=== PATIENT | male | born 1945 | race Caucasian/White ===

== ENCOUNTER → 2017-10-03 07:30 | Outpatient (CLI) | payer MEDICARE, OTHER, SELFPAY ==
[2017-10-03 09:13] LABS: AST(SGOT) 27 U/L (15-37); Alanine Aminotransfer ALT/SGPT 33 U/L (16-61); Albumin, Serum 3.6 g/dL (3.2-5.0); Alkaline Phosphatase 74 U/L (45-117); Bilirubin, Direct 0.19 mg/dL (0.00-0.30); Cholesterol 166 mg/dL (200); Globulin 4.1 g/dL (2.2-4.2); High Density Lipoprotein 49 mg/dL; Protein, Total 7.7 g/dL (6.4-8.2); Triglycerides 183 mg/dL; Very Low Density Lipoprotein 37 mg/dL (5-40)
== END ==
PROVIDERS: Internal Medicine Cardiovascular Disease; Family Provider Family Medicine; PCP Family Medicine; Visit Provider Radiology Diagnostic Radiology
DX: E78.5 Hyperlipidemia, unspecified (principal); Z79.899 Other long term (current) drug therapy
CPT/HCPCS: 36415; 80061; 80076

== ENCOUNTER → 2017-11-06 08:04 | Outpatient (CLI) | payer MEDICARE, OTHER, SELFPAY ==
[2017-11-06 09:52] LABS: Absolute Lymphocyte Count 1.23 X10^3/ul (0.83-4.51); Absolute Neutrophil Count 4.7 X10^3/uL (2.0-7.7); Basophil# 0.01 X10^3/uL; Basophil% 0.2 % (0-1); Eosinophil# 0.11 X10^3/uL; Eosinophils% 1.7 % (0-5); Hematocrit 47.6 % (40-54); Lymphocyte # 1.23 X10^3/ul (4.0); Lymphocyte % 19.2 % (19-41); Mean Corp Hgb Conc 33.6 g/gl (32-36); Mean Corpuscular Hgb 30.5 pg (27.0-32.0); Mean Corpuscular Volume 90.7 fL (80-94); Mean Platelet Vol. 11.1 fl (6.2-12.0); Monocyte# 0.38 X10^3/uL; Monocyte% 5.9 % (0-10); Neutrophil # 4.66 X10^3/uL (2.7-7.7); Neutrophil % 72.8 % (47-70); Platelet Count 203 K/mm3 (150-450); RBC Distribution Width CV 13.2 % (11.6-14.6); RBC Distribution Width SD 43.3 fl (35.1-43.9); Red Blood Count 5.25 M/mm3 (4.6-6.2); White Blood Count 6.4 K/mm3 (4.4-11.0)
[2017-11-06 09:53] LABS: POSITIVE COUNT NO; POSITIVE DIFFERENTIAL NO; POSITIVE MORPHOLOGY NO
[2017-11-06 10:04] LABS: ALB/GLOB Ratio 0.9 RATIO (0.9-2.4); AST(SGOT) 25 U/L (15-37); Alanine Aminotransfer ALT/SGPT 33 U/L (16-61); Albumin, Serum 3.9 g/dL (3.2-5.0); Alkaline Phosphatase 84 U/L (45-117); Anion Gap 9 (5-15); BUN 23 mg/dL (7-18); BUN/Creat Ratio 17.2 RATIO (10-20); Calcium,Total 9.4 mg/dL (8.5-10.1); Chloride 106 mmol/L (98-107); Cholesterol 178 mg/dL (200); Creatinine, Serum 1.34 mg/dL (0.70-1.30); EST Glomerular Filtration Rate 56 mL/min (>60); Est Glom Filt Rate - Afr Amer 67 mL/min (>60); Globulin 4.3 g/dL (2.2-4.2); Glucose 106 mg/dL (74-106); High Density Lipoprotein 48 mg/dL; Potassium 3.6 mmol/L (3.5-5.1); Protein, Total 8.2 g/dL (6.4-8.2); Sodium Level 141 mmol/L (136-145); Triglycerides 136 mg/dL; Very Low Density Lipoprotein 27 mg/dL (5-40)
== END ==
PROVIDERS: Family Provider Family Medicine; PCP Family Medicine; Visit Provider Family Medicine
DX: I25.10 Atherosclerotic heart disease of native coronary artery without angina pectoris (principal)
CPT/HCPCS: 36415; 80053; 80061; 85025

== ENCOUNTER → 2018-03-14 07:42 | Outpatient (CLI) | payer MEDICARE, OTHER, SELFPAY ==
[2018-03-14 09:13] LABS: AST(SGOT) 32 U/L (15-37); Alanine Aminotransfer ALT/SGPT 33 U/L (16-61); Albumin, Serum 3.9 g/dL (3.2-5.0); Alkaline Phosphatase 68 U/L (45-117); Bilirubin, Direct 0.16 mg/dL (0.00-0.30); Cholesterol 183 mg/dL (200); Globulin 4.2 g/dL (2.2-4.2); High Density Lipoprotein 46 mg/dL; Protein, Total 8.1 g/dL (6.4-8.2); Triglycerides 218 mg/dL; Very Low Density Lipoprotein 44 mg/dL (5-40)
== END ==
PROVIDERS: Family Provider Family Medicine; PCP Family Medicine; Visit Provider Internal Medicine Cardiovascular Disease
DX: I25.10 Atherosclerotic heart disease of native coronary artery without angina pectoris (principal); E78.5 Hyperlipidemia, unspecified
CPT/HCPCS: 36415; 80061; 80076

== ENCOUNTER → 2018-04-18 08:17 | Outpatient (CLI) | payer MEDICARE, OTHER, SELFPAY ==
[2018-04-18 09:47] LABS: AST(SGOT) 33 U/L (15-37); Alanine Aminotransfer ALT/SGPT 34 U/L (16-61); Albumin, Serum 3.7 g/dL (3.2-5.0); Alkaline Phosphatase 65 U/L (45-117); Bilirubin, Direct 0.17 mg/dL (0.00-0.30); Cholesterol 170 mg/dL (200); Globulin 4.2 g/dL (2.2-4.2); High Density Lipoprotein 47 mg/dL; Protein, Total 7.9 g/dL (6.4-8.2); Triglycerides 189 mg/dL; Very Low Density Lipoprotein 38 mg/dL (5-40)
== END ==
PROVIDERS: Family Provider Family Medicine; PCP Family Medicine; Referring Provider Nurse Practitioner Family; Visit Provider Nurse Practitioner Family
DX: E78.5 Hyperlipidemia, unspecified (principal); I25.10 Atherosclerotic heart disease of native coronary artery without angina pectoris
CPT/HCPCS: 36415; 80061; 80076

== ENCOUNTER → 2018-04-30 08:20 | Outpatient (CLI) | payer MEDICARE, OTHER, SELFPAY ==
[2018-04-30 10:35] LABS: Hemoglobin 14.7 g/dl (13.0-16.5); Mean Corp Hgb Conc 34.2 g/gl (32-36); Mean Corpuscular Hgb 31.1 pg (27.0-32.0); Mean Corpuscular Volume 90.9 fL (80-94); Mean Platelet Vol. 10.5 fl (6.2-12.0); Platelet Count 215 K/mm3 (150-450); RBC Distribution Width CV 13.3 % (11.6-14.6); RBC Distribution Width SD 43.2 fl (35.1-43.9); Red Blood Count 4.73 M/mm3 (4.6-6.2); White Blood Count 5.2 K/mm3 (4.4-11.0)
[2018-04-30 10:38] LABS: Scan Indicated on CBC? Y/N NO
[2018-04-30 10:52] LABS: ALB/GLOB Ratio 0.9 RATIO (0.9-2.4); AST(SGOT) 29 U/L (15-37); Alanine Aminotransfer ALT/SGPT 32 U/L (16-61); Albumin, Serum 3.7 g/dL (3.2-5.0); Alkaline Phosphatase 74 U/L (45-117); Anion Gap 9 (5-15); BUN 25 mg/dL (7-18); BUN/Creat Ratio 18.2 RATIO (10-20); Chloride 104 mmol/L (98-107); Cholesterol 164 mg/dL (200); Creatinine, Serum 1.37 mg/dL (0.70-1.30); EST Glomerular Filtration Rate 54 mL/min (>60); Est Glom Filt Rate - Afr Amer 66 mL/min (>60); Globulin 4.2 g/dL (2.2-4.2); Glucose 88 mg/dL (74-106); High Density Lipoprotein 47 mg/dL; Protein, Total 7.9 g/dL (6.4-8.2); Sodium Level 140 mmol/L (136-145); Thyroid Stim Hormone (TSH) 1.81 uIU/mL (0.358-3.74); Triglycerides 161 mg/dL; Very Low Density Lipoprotein 32 mg/dL (5-40)
== END ==
PROVIDERS: Family Provider Family Medicine; PCP Family Medicine; Visit Provider Family Medicine
DX: I25.10 Atherosclerotic heart disease of native coronary artery without angina pectoris (principal)
CPT/HCPCS: 36415; 80053; 80061; 84443; 85027

== ENCOUNTER → 2018-08-28 08:17 | Outpatient (CLI) | payer MEDICARE, OTHER, SELFPAY ==
[2018-08-07 09:35] VITALS: BMI 26.4
[2018-08-28 12:40] LABS: BUN 24 mg/dL (7-18); BUN/Creat Ratio 17.6 RATIO (10-20); Creatinine, Serum 1.36 mg/dL (0.70-1.30); EST Glomerular Filtration Rate 55 mL/min (>60); Est Glom Filt Rate - Afr Amer 66 mL/min (>60); Glucose 84 mg/dL (74-106)
[2018-08-28 12:41] LABS: Anion Gap 10 (5-15); Calcium,Total 8.7 mg/dL (8.5-10.1); Chloride 103 mmol/L (98-107); Potassium 3.9 mmol/L (3.5-5.1); Sodium Level 139 mmol/L (136-145)
== END ==
PROVIDERS: Family Provider Family Medicine; PCP Family Medicine; Visit Provider Family Medicine
DX: I10 Essential (primary) hypertension (principal)
CPT/HCPCS: 36415; 80048

== ENCOUNTER → 2018-11-03 | Outpatient (CLI) | payer MEDICARE, OTHER, SELFPAY ==
[2018-08-07 09:35] VITALS: BMI 26.4
[2018-11-03 07:54] LABS: AST(SGOT) 40 U/L (15-37); Alanine Aminotransfer ALT/SGPT 35 U/L (16-61); Albumin, Serum 3.9 g/dL (3.2-5.0); Alkaline Phosphatase 76 U/L (45-117); Bilirubin, Direct 0.27 mg/dL (0.00-0.30); Cholesterol 171 mg/dL (200); High Density Lipoprotein 57 mg/dL; Protein, Total 7.9 g/dL (6.4-8.2); Triglycerides 174 mg/dL; Very Low Density Lipoprotein 35 mg/dL (5-40)
== END | disposition home or self-care (01) ==
LOC: LAB 07:16
PROVIDERS: Family Provider Family Medicine; PCP Family Medicine; Referring Provider Nurse Practitioner Family; Visit Provider Nurse Practitioner Family
DX: E78.5 Hyperlipidemia, unspecified (principal)
CPT/HCPCS: 36415; 80061; 80076

== ENCOUNTER → 2019-04-29 | Outpatient (CLI) | payer MEDICARE, OTHER, SELFPAY ==
[2019-04-16 11:07] VITALS: BMI 26.4
--- NOTE | 2019-04-29 10:59 | ECHOD_ITS ---
Reason For Study: CAD/ASHD Procedure This was a 2D Doppler, Color Flow transthoracic echocardiogram. Exam performed in department. Left Ventricle Normal size and thickness. The estimated ejection fraction is 65 %. Stage 1 diastolic dysfunction. No regional wall motion abnormalities noted. Right Ventricle Moderately dilated right ventricle. Normal systolic function. Atria Normal left atrium. Normal right atrium. Normal atrial septum. Mitral Valve The mitral valve is structurally normal. No prolapse or stenosis seen. Trivial mitral valve insufficiency. Tricuspid Valve Normal tricuspid valve. Mild (1+) tricuspid valve insufficiency. Right ventricular systolic pressure estimated to be 39 mmHg. Mild pulmonary hypertension. Aortic Valve Trisinus/trileaflet aortic valve. Mild diffuse aortic valve thickening. Mild (1+) aortic valve insufficiency. Pulmonic Valve Normal pulmonic valve. Great Vessels Normal aortic root. Normal arch. Normal inferior vena cava. Inferior vena cava collapse with sniff. Pericardium/Pleural No pericardial effusion. MMode/2D Measurements & Calculations LVIDd: 4.9 cm IVSd: 1.1 cm Ao root diam: 3.5 cm LVIDs: 3.2 cm LVPWd: 1.1 cm RVDd: 4.4 cm FS: 34.7 % LAV(MOD-bp): 56.0 ml LVAd ap4: 36.5 cm2 SV(MOD-sp4): 83.4 ml LAV(MOD-bp) Indexed: 28.1 ml/m2 EDV(MOD-sp4): 134.1 ml LAV(MOD-sp2): 64.2 ml EDV(sp4-el): 141.3 ml LAV(MOD-sp4): 47.9 ml LVAs ap4: 20.5 cm2 ESV(MOD-sp4): 50.7 ml ESV(sp4-el): 52.6 ml EF(MOD-sp4): 62.2 % EF(sp4-el): 62.8 % SV(sp4-el): 88.7 ml LA A4 area: 17.2 cm2 LA dimension(2D): 4.1 cm RA A4 area: 15.5 cm2 Time Measurements MV dec time: 0.30 sec Doppler Measurements & Calculations MV E max delgado: 55.2 cm/sec Lat Peak E' Delgado: 7.5 cm/sec Med Peak E' Delgado: 6.4 cm/sec MV A max delgado: 64.6 cm/sec E/E' lat: 7.3 E/E' med: 8.7 MV E/A: 0.85 Ao V2 max: 148.5 cm/sec AI max delgado: 422.9 cm/sec LV V1 max: 118.6 cm/sec Ao max P.8 mmHg AI max P.5 mmHg LV V1 max P.6 mmHg AI dec slope: 150.9 cm/sec2 AI P1/2t: 820.6 msec PA V2 max: 78.5 cm/sec TR max delgado: 282.1 cm/sec TR max P.9 mmHg Interpretation Summary The estimated ejection fraction is 65 %. Stage 1 diastolic dysfunction. Moderately dilated right ventricle. Trivial mitral valve insufficiency. Mild (1+) tricuspid valve insufficiency. Right ventricular systolic pressure estimated to be 39 mmHg. Mild pulmonary hypertension. Mild (1+) aortic valve insufficiency. There is no comparison study available. Ordering Physician: Juan David Arias Referring Physician: DESIRAE EVANS Performed By: Yuki Fair RDCS
== END | disposition home or self-care (01) ==
LOC: CVS 10:58
PROVIDERS: Family Provider Family Medicine; PCP Family Medicine; Referring Provider Internal Medicine Cardiovascular Disease; Visit Provider Internal Medicine Cardiovascular Disease
DX: I25.10 Atherosclerotic heart disease of native coronary artery without angina pectoris (principal); E78.5 Hyperlipidemia, unspecified; I10 Essential (primary) hypertension; Z95.5 Presence of coronary angioplasty implant and graft
CPT/HCPCS: 93306

== ENCOUNTER → 2019-05-13 | Outpatient (CLI) | payer MEDICARE, OTHER, SELFPAY ==
[2019-04-16 11:07] VITALS: BMI 26.4
--- NOTE | 2019-05-13 09:19 | STEWCON_ITS ---
Reason For Study: CAD/ASHD Stress Results Protocol: Surya Protocol WITH DEFINITY Maximum Predicted HR: 146 bpm Target HR: 124 bpm % Maximum Predicted HR: 108 % DurationHeart Rate Stage (mm:ss) (bpm) BP Comment baseline 58 132/702 cc definity stage one 3:00 92 120/80 stage two 3:00 108 130/82 stage three 3:00 129 140/882 cc definity stage four 0:30 157 / recovery 78 138/78 Stress Duration: 9:30 mm:ss Maximum Stress HR: 157 bpm Baseline Echocardiogram Findings The estimated ejection fraction is 65 %. Stress Echo Wall motion Data Resting WM Intermediate WM Stress WM Resting Wall Motion Wall Motion Stress No regional wall motion No regional wall motion abnormalities noted. abnormalities noted. EKG Data The baseline ECG displays normal sinus rhythm. The patient exercised according to the regular Surya protocol for a total duration of 9:30. The maximum heart rate attained was 157 beats per minute. This was 107% of maximum predicted heart rate. The patient exercised into stage 4 of the Surya protocol. During stress, there were no ST or T wave changes noted to suggest ischemia. No clinical angina was noted. Interpretation Summary The estimated ejection fraction is 65 %. Normal, adequate, treadmill echocardiogram. Negative for ischemia by EKG and echocardiographic criteria. No anginal symptoms noted. Rare PVC noted. Appropriate blood pressure response to exercise. Average exercise capacity for age. Final LVEF is 75%. Test terminated due to attainment of target heart rate. No complications. Decreased sensitivity due to poor echo windows requiring Definity agent. The study was technically difficult. Contrast injection was performed. Ordering Physician: Juan David Arias Referring Physician: Juan David Arias Performed By: Meenu Aldana, RDCS, RVT
== END | disposition home or self-care (01) ==
LOC: CVS 09:18
PROVIDERS: Family Provider Family Medicine; PCP Family Medicine; Referring Provider Internal Medicine Cardiovascular Disease; Visit Provider Internal Medicine Cardiovascular Disease
DX: I25.10 Atherosclerotic heart disease of native coronary artery without angina pectoris (principal); I10 Essential (primary) hypertension; E78.5 Hyperlipidemia, unspecified; Z95.5 Presence of coronary angioplasty implant and graft
CPT/HCPCS: 93017; 93350; Q9957; A4216; C8928

== ENCOUNTER → 2019-09-07 | Outpatient (CLI) | payer MEDICARE, OTHER, SELFPAY ==
[2019-04-16 11:07] VITALS: BMI 26.4
[2019-09-07 10:22] LABS: Hematocrit 44.3 % (40-54); Hemoglobin 14.7 g/dL (13.0-16.5); Mean Corp Hgb Conc 33.2 g/dL (32-36); Mean Corpuscular Hgb 29.1 pg (27.0-32.0); Mean Corpuscular Volume 87.7 fL (80-94); Mean Platelet Vol. 10.3 fl (6.2-12.0); Platelet Count 225 K/mm3 (150-450); RBC Distribution Width SD 41.5 fl (35.1-43.9); Red Blood Count 5.05 M/mm3 (4.6-6.2); White Blood Count 6.7 K/mm3 (4.4-11.0)
[2019-09-07 10:47] LABS: ALB/GLOB Ratio 0.9 RATIO (0.9-2.4); AST(SGOT) 21 U/L (15-37); Alanine Aminotransfer ALT/SGPT 24 U/L (16-61); Albumin, Serum 3.7 g/dL (3.2-5.0); Alkaline Phosphatase 81 U/L (45-117); Anion Gap 8 (5-15); BUN 22 mg/dL (7-18); BUN/Creat Ratio 17.9 RATIO (10-20); Calcium,Total 9.2 mg/dL (8.5-10.1); Chloride 103 mmol/L (98-107); Creatinine, Serum 1.23 mg/dL (0.70-1.30); EST Glomerular Filtration Rate 61 mL/min (>60); Est Glom Filt Rate - Afr Amer 74 mL/min (>60); Globulin 4.1 g/dL (2.2-4.2); Glucose 93 mg/dL (74-106); PSA,Total - Annual Screen 1.08 ng/mL (0.00-4.00); Potassium 4.1 mmol/L (3.5-5.1); Protein, Total 7.8 g/dL (6.4-8.2); Sodium Level 138 mmol/L (136-145)
== END | disposition home or self-care (01) ==
LOC: MFPLAB 08:15
PROVIDERS: PCP Family Medicine; Referring Provider Family Medicine; Visit Provider Family Medicine
DX: I25.10 Atherosclerotic heart disease of native coronary artery without angina pectoris (principal); Z12.5 Encounter for screening for malignant neoplasm of prostate
CPT/HCPCS: 36415; 80053; 84153; 85027; G0103

== ENCOUNTER → 2019-11-03 | Outpatient (CLI) | payer MEDICARE, OTHER, SELFPAY ==
[2019-11-03 08:08] VITALS: BMI 26.1
[2019-11-03 11:24] LABS: AST(SGOT) 28 U/L (15-37); Alanine Aminotransfer ALT/SGPT 30 U/L (16-61); Albumin, Serum 3.9 g/dL (3.2-5.0); Alkaline Phosphatase 78 U/L (45-117); Cholesterol 183 mg/dL (200); Globulin 4.2 g/dL (2.2-4.2); High Density Lipoprotein 53 mg/dL; Protein, Total 8.1 g/dL (6.4-8.2); Triglycerides 189 mg/dL; Very Low Density Lipoprotein 38 mg/dL (5-40)
== END | disposition home or self-care (01) ==
LOC: LAB 10:07
PROVIDERS: PCP Family Medicine; Referring Provider Internal Medicine Cardiovascular Disease; Visit Provider Internal Medicine Cardiovascular Disease
DX: E78.5 Hyperlipidemia, unspecified (principal)
CPT/HCPCS: 36415; 80061; 80076

== ENCOUNTER 2020-03-03 15:23 | Emergency (ER) | payer MEDICARE, OTHER, SELFPAY ==
[2019-11-03 08:08] VITALS: BMI 26.1
[2020-03-03 15:24] VITALS: BP 149/99; PULSE 65; RESP 18; TEMP 37.1; BMI 26.8
--- NOTE | 2020-03-03 15:49 | RAD_ITS ---
STUDY: X-RAY - RIGHT KNEE REASON FOR EXAM: Male, 74 years old. Fall. Pain and bruising. TECHNIQUE: 5 view(s) of the knee. COMPARISON: None. FINDINGS: Normal visualized distal femur. Normal visualized proximal tibia and fibula. There is arthrosis of the proximal tibiofibular articulation. There is no acute fracture, dislocation or destructive osseous pathology. There is moderate degenerative arthrosis of the medial femorotibial compartment with moderate joint space narrowing. There is mild degenerative arthrosis of the lateral femorotibial compartment. There is severe degenerative arthrosis of the patellofemoral articulation. There is no demonstrated joint effusion. The soft tissue structures are unremarkable. RAD/Knee 4 or More Views IMPRESSION: Degenerative changes of the right knee. There is no acute fracture or dislocation. Electronically Signed: Teja Simpson DO at 16:31 EDT Tel [phone], Service support ,
--- NOTE | 2020-03-03 15:49 | RAD_ITS ---
STUDY: X-RAY - RIGHT TIBIA AND FIBULA REASON FOR EXAM: Male, 74 years old. Fall. Pain and bruising. TECHNIQUE: 3 view(s) of the tibia and fibula were obtained. COMPARISON: None. FINDINGS: Normal visualized tibia. Normal visualized fibula. There is no acute fracture, dislocation or destructive osseous pathology. The ankle is unremarkable. There are mild degenerative changes of the knee. The soft tissue structures are unremarkable. RAD/Tibia & Fibula 2 Views IMPRESSION: No acute fracture or dislocation. Electronically Signed: Teja Simpson DO at 16:36 EDT Tel [phone], Service support ,
--- NOTE | 2020-03-03 15:50 | ED.VIS.GEN ---
History of Present Illness Chief Complaint: Lower Extremity Injury Informant: Patient Narrative: 74-year-old male presenting for right tibial and right knee pain. 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 He states he has not tried to stand yet. He states that is only mildly painful. He has some superficial abrasions overlying the skin on the crisostomo but no obvious deformities. He notes there is bruising under his knee inferior to his patella. He is not having numbness or tingling. Last tetanus is unknown. She does have history of DVT secondary to factor V Leiden and is on Coumadin. He states it was recently checked and is 2.3. - Past Medical History (1) Atherosclerosis of coronary artery of [place] heart without angina pectoris Status: Chronic Comment: PCI-SYDNIE-Mid and Prox LAD and SYDNIE-Distal RCA @ [facility] (2) DVT (deep venous thrombosis) Status: Chronic (3) Factor V Leiden Status: Chronic (4) GERD (gastroesophageal reflux disease) Status: Chronic (5) History of coronary artery stent placement Status: Chronic Comment: PCI-SYDNIE-Mid and Prox LAD and SYDNIE-Distal RCA @ [facility] (6) Hyperlipidemia Status: Chronic (7) Hypertension Status: Chronic (8) Nonrheumatic aortic (valve) insufficiency Status: Chronic Comment: Mild (1+) per echo 04/29/2019 Past Medical History - Allergies and Home Meds Allergies/Adverse Reactions: Allergies atorvastatin [From Lipitor] Adverse Reaction (Severe, Verified 11/03/19 08:57) Intolerence, elevated LFT's Primary Care Physician: Leandro Milan MD [Primary Care Provider] - Prior records reviewed: Yes Past Medical History: - - Reviewed under problem list Surgical History: - - PCI x 3, Umbilical hernia repair, R femoral hernia repair, R arthroscopic knee surgery and patellar dislocation repair, L4-L5 back surgery w/ hardware. Lives: Spouse/ Significant Other Smoking Status: Former smoker Alcohol: None Drugs: None - Family History Maternal Family History: Family History (Last Reviewed 11/03/19 @ 08:08 by Marian Mccoy) Father CAD (coronary artery disease) Family History: Reports: Cancer - Maternal history of pancreatitis cancer. Maternal family history of cancer in sisters and patient female siblings. Paternal Family History: Family History (Last Reviewed 11/03/19 @ 08:08 by Marian Mccoy) Father CAD (coronary artery disease) Family History: Reports: Heart Disease - Hx CABG. Review of Systems General: Denies: Chills, Fever, Sweats Eyes: Denies: Visual changes - bilaterally, Diplopia ENT: Denies: Rhinorrhea, Sore throat Cardiovascular: Denies: Chest pain, Palpitations Respiratory: Denies: Dyspnea, Cough, Dyspnea on exertion Gastrointestinal: Denies: Abdominal pain, Nausea, Vomiting, Diarrhea, Melena, Hematochezia Musculoskeletal: Reports: - - Right tibial and right knee pain Skin: Reports: Abrasions - Right tibia abrasions, - - Ecchymosis inferior to right knee Neurological: Denies: Headache, Weakness Physical Exam Vital Signs/Narrative: Vital Signs Temp Pulse Resp BP 03/03/20 15:24 98.8 F 65 18 149/99 H Inital Vital Signs reviewed: Yes General: Well nourished, No Acute Distress Head: Normocephalic, Atraumatic Eyes: Perrl, EOMI ENT: Moist mucous membranes Cardiovascular: Regular rate, Regular rhythm Respiratory: No distress, CTA bilaterally Extremities: - - Tenderness to palpation over anterior tibia. No obvious deformities. Superficial abrasions over this area are not bleeding. Right lower extremity is neurovascular intact. Right calf compartments are soft. Plantarflexion and dorsiflexion 5/5 strength. No pain elicited by movement. Skin: - - Facial abrasions overlying anterior tibia. Ecchymosis inferior to right patella. Neurological: Alert, Oriented x3 Psychological: Normal affect Diagnostic/Tx/Re-eval Clinical Impression(s) from Imaging Studies Knee X-Ray 03/03/20 15:49 IMPRESSION: Degenerative changes of the right knee. There is no acute fracture or dislocation. Electronically Signed: Teja Simpson DO at 16:31 EDT Tel [phone], Service support , Tibia/Fibula X-Ray 03/03/20 15:49 IMPRESSION: No acute fracture or dislocation. Electronically Signed: Teja Simpson DO at 16:36 EDT Tel [phone], Service support , - Medical Decision Making Patient presents with left leg pain after a log hit him in the leg while he was offloading it. He has not tried to ambulate yet but does not have significant pain. He has superficial abrasions overlying this area and his tetanus was updated today. X-rays of the left tib-fib and left knee are normal. Patient is given wound care instructions. He is counseled on Coumadin he could develop a hematoma and he should use compression. If this gets too large she should come back for reevaluation. He states that his Coumadin was recently checked and range. Patient is ambulatory at this point he is stable for discharge. Impression: 1. Right leg contusion 2. Right tibial abrasions ED Disposition - Plan for ED Patient: Disposition: Home or Assisted Living Instructions: ED Abrasion, ED EXTREMITY CONTUSION Lower Referrals: Leandro Milan MD [Primary Care Provider] -
[2020-03-03] MEDS: Diphth,Pertuss(Acell),Tet Vac 0.5 ML Vial IM (16:53)
[2020-03-03 17:08] VITALS: RESP 18
== END 2020-03-03 17:21 | disposition home or self-care (01) ==
PROVIDERS: Emergency Provider Student in an Organized Health Care Education/Training Program; PCP Family Medicine
DX: S80.811A Abrasion, right lower leg, initial encounter (principal); D68.51 Activated protein C resistance; I25.10 Atherosclerotic heart disease of native coronary artery without angina pectoris; K21.9 Gastro-esophageal reflux disease without esophagitis; E78.5 Hyperlipidemia, unspecified; I10 Essential (primary) hypertension; Z95.5 Presence of coronary angioplasty implant and graft; Z87.891 Personal history of nicotine dependence; Z86.718 Personal history of other venous thrombosis and embolism; Z79.01 Long term (current) use of anticoagulants; W20.8XXA Other cause of strike by thrown, projected or falling object, initial encounter; Y93.89 Activity, other specified; Y92.008 Other place in unspecified non-institutional (private) residence as the place of occurrence of the external cause; Y99.8 Other external cause status
CPT/HCPCS: 73564; 73590; 90471; 90715; 99284

== ENCOUNTER → 2020-05-27 07:32 | Outpatient (CLI) | payer MEDICARE, OTHER, SELFPAY ==
[2020-05-16 11:03] VITALS: BMI 26.1
[2020-05-27 08:06] LABS: AST(SGOT) 20 U/L (15-37); Alanine Aminotransfer ALT/SGPT 27 U/L (16-61); Albumin, Serum 3.9 g/dL (3.2-5.0); Alkaline Phosphatase 89 U/L (45-117); Bilirubin, Direct 0.19 mg/dL (0.00-0.30); Cholesterol 154 mg/dL (200); Globulin 4.5 g/dL (2.2-4.2); High Density Lipoprotein 54 mg/dL; Protein, Total 8.4 g/dL (6.4-8.2); Triglycerides 158 mg/dL; Very Low Density Lipoprotein 32 mg/dL (5-40)
== END ==
PROVIDERS: PCP Family Medicine; Referring Provider Specialist; Visit Provider Specialist
DX: E78.00 Pure hypercholesterolemia, unspecified (principal)
CPT/HCPCS: 36415; 80061; 80076

== ENCOUNTER 2020-09-12 11:47 | Observation (INO) | payer MEDICARE, OTHER, SELFPAY ==
[2020-05-16 11:03] VITALS: BMI 26.1
[2020-09-12] VITALS (10 sets, daily range): BP systolic 134–144; BP diastolic 74–85; PULSE 55–66; RESP 14–21; TEMP 36.1–36.9; O2SAT 95–98; BMI 27.5; BMI 26.4
--- NOTE | 2020-09-12 12:01 | EKG12_ITS ---
Test Reason : Blood Pressure : / mmHG Vent. Rate : 059 BPM Atrial Rate : 059 BPM P-R Int : 146 ms QRS Dur : 132 ms QT Int : 466 ms P-R-T Axes : 018 -54 022 degrees QTc Int : 461 ms Sinus bradycardia Right bundle branch block Left anterior fascicular block Bifascicular block Inferior infarct , age undetermined Abnormal ECG Confirmed by TIMI PEREYRA, BRIGIDO ([id number]), design editor YUSRA MATTSON ([id number]) on 09/13/2020 10:40:23 AM Referred By: JAZ Confirmed By:BRIGIDO CAPELLAN MD
--- NOTE | 2020-09-12 12:02 | ED.VISSUMM ---
- ER Visit Summary Date of Service: 09/12/20 Chief Complaint: [Chest pain] History of Present Illness: The patient is a 75 M [presents to the emergency department complaint of chest pain at he has had for several days off and on. Patient states that he woke up this morning with it and has been mostly continuous today. He describes it as a dull ache. The pain radiates into his neck and left shoulder. He has had similar pain in the past related to his heart. Patient has 3 cardiac stents. His last stress test was about 6 months ago. Patient on Coumadin currently and has been taking it regularly. Patient has history of factor V Leiden and history of DVT. Patient has history of coronary artery disease, hypertension, high cholesterol, and GERD. EMS did give patient aspirin and 1 nitro which seemed to help his pain. He currently rates it a 2 out of 10.] Physical Examination: [HEENT-PERRLA, EOMI. Cranial nerves II through XII grossly intact. TMs clear. Mucous membranes moist. No adenopathy. Cardiovascular-regular rate and rhythm without murmur or ectopy Lungs-clear to auscultation, chest wall stable without crepitus or subcu emphysema Abdomen-normoactive bowel sounds, soft, nontender, no rebound or rigidity, no peritoneal signs. Extremities-intact ?4, normal range of motion, normal pulses, atraumatic] Test Results: [EKG obtained arrival shows sinus rhythm with a ventricular rate of 59 bpm with a right bundle branch block and left anterior fascicular block.] Compared to EKG from 2017 the right bundle branch block seems new. CBC with differential count of 9.7, hemoglobin 15.9, hematocrit 45, placed 242. Chemistries unremarkable. Troponin less than 0.015. INR was 1.8. Chest x-ray 1 view obtained interpreted by myself as no acute disease process and radiology in agreement. Emergency Department Course and Treatment: [IV line established on arrival. Patient placed on a inpatient pharmacist.] Treatment Plan: [Case will be discussed with hospitalist evaluate for admission] Disposition: [Admit] Impression: [Chest pain-rule out acute coronary syndrome] This note was generated with [employer] software. It may contain incorrect words, spelling, and punctuation that were not noted in review of the chart prior to signing ED Disposition - Plan for ED Patient: Referrals: Leandro Milan MD [Primary Care Provider] -
--- NOTE | 2020-09-12 12:05 | RAD_ITS ---
STUDY: X-RAY CHEST REASON FOR EXAM: Male, 75 years old. Chest pain and sob x 2 days. TECHNIQUE: Single AP portable view of the chest. COMPARISON: Comparison is made with prior examination dated 07/05/2017. FINDINGS: EKG electrodes are seen. Minimal elevation of the left hemidiaphragm. Stable blunting of left costophrenic angle. Scattered calcified granulomas. Normal size heart. Normal mediastinum and maria l. Normal visualized pulmonary arteries. There is atherosclerotic tortuosity of the aortic arch and descending thoracic aorta. There are diffuse degenerative changes of the visualized thoracic spine. There is degenerative osteoarthritis of the bilateral shoulders. There is no demonstrated abnormality of the visualized soft tissue structures of the upper abdomen. RAD/Chest 1 View (Portable) IMPRESSION: Stable examination. No acute abnormality is seen. Electronically Signed: John Griffith MD at 12:31 EST , Service support ,
[2020-09-12] MEDS: 0.9% Normal Saline 1,000 ML 150 ML IV (12:15)
[2020-09-12 12:17] LABS: Absolute Lymphocyte Count 1.93 X10^3/uL (0.83-4.51); Absolute Neutrophil Count 6.8 X10^3/uL (2.0-7.7); Basophil# 0.06 X10^3/uL; Basophil% 0.6 % (0-1); Eosinophil# 0.21 X10^3/uL; Eosinophils% 2.2 % (0-5); Hematocrit 45.1 % (40-54); Hemoglobin 15.9 g/dL (13.0-16.5); Lymphocyte # 1.93 X10^3/ul (4.0); Lymphocyte % 19.8 % (19-41); Mean Corp Hgb Conc 35.3 g/dL (32-36); Mean Corpuscular Hgb 32.1 pg (27.0-32.0); Mean Corpuscular Volume 90.9 fL (80-94); Mean Platelet Vol. 10.3 fl (6.2-12.0); Monocyte# 0.68 X10^3/uL; NRBC Flagged by Analyzer 0 % (0-5); Neutrophil % 69.9 % (47-70); Platelet Count 242 K/mm3 (150-450); RBC Distribution Width CV 14.8 % (11.6-14.6); Red Blood Count 4.96 M/mm3 (4.6-6.2); White Blood Count 9.7 K/mm3 (4.4-11.0)
[2020-09-12 12:27] LABS: International Normalized Ratio 1.8; Prothrombin Time (Protime)PT. 20.1 SECONDS (11.7-14.9)
[2020-09-12 12:34] LABS: BUN 23 mg/dL (7-18); Creatinine, Serum 1.27 mg/dL (0.70-1.30); Glucose 122 mg/dL (74-106)
[2020-09-12 12:35] LABS: Anion Gap 4 (5-15); BUN/Creat Ratio 18.1 RATIO (10-20); Calcium,Total 9.7 mg/dL (8.5-10.1); Chloride 101 mmol/L (98-107); EST Glomerular Filtration Rate 59 mL/min (>60); Est Glom Filt Rate - Afr Amer 71 mL/min (>60); Estimated Creatinine Clearance 51.89 ml/min; Potassium 3.6 mmol/L (3.5-5.1); Sodium Level 136 mmol/L (136-145)
--- NOTE | 2020-09-12 12:59 | NURSING ---
PCU OBS FRANKIE [facility]ERNEY
--- NOTE | 2020-09-12 13:15 | PCM.HP.STD ---
Problem List (1) Chest pain Status: Acute (2) Secondary pulmonary hypertension Status: Chronic Comment: RVSP 39 mmhg per echo 04/29/2019 (3) Nonrheumatic tricuspid (valve) insufficiency Status: Chronic Comment: Mild (1+) PER ECHO 04/29/2019 (4) Nonrheumatic aortic (valve) insufficiency Status: Chronic Comment: Mild (1+) per echo 04/29/2019 (5) Right ventricular dilation Status: Chronic (6) Factor V Leiden Status: Chronic (7) History of coronary artery stent placement Status: Chronic Comment: PCI-SYDNIE-Mid and Prox LAD and SYDNIE-Distal RCA @ [facility] (8) Atherosclerosis of coronary artery of [place] heart without angina pectoris Status: Chronic Qualifiers: Comment: PCI-SYDNIE-Mid and Prox LAD and SYDNIE-Distal RCA @ [facility] (9) DVT (deep venous thrombosis) Status: Chronic (10) GERD (gastroesophageal reflux disease) Status: Chronic (11) Hyperlipidemia Status: Chronic Qualifiers: (12) Hypertension Status: Chronic Qualifiers: History of Present Illness Date of Admission: 09/12/20 Chief Complaint: chest pain The patient is a 75 year old M has been experiencing intermittent chest pain over the past several weeks. More recently, the , patient has been having dyspnea on exertion to the point where he is having labored breathing going up a flight of stairs at his home which is new. Patient has had a history of coronary artery disease and stents and had similar chest pain but and shortness of breath but much more severe at that time than this time. Patient was concerned that about 4 days ago, he was doing some heavy lifting and aggravated his back. Patient stated that his chest pain did radiate to his back his chest pain is left-sided and goes up to his left shoulder and left neck. Patient did receive nitroglycerin in the emergency room and is currently chest pain-free at this time. [] Past Medical History Past Medical History (Chronic Problems): Chronic Problems (Last Reviewed 05/16/20 @ 12:[address] David Morgan MD) Secondary pulmonary hypertension (Chronic) RVSP 39 mmhg per echo 04/29/2019 Nonrheumatic tricuspid (valve) insufficiency (Chronic) Mild (1+) PER ECHO 04/29/2019 Nonrheumatic aortic (valve) insufficiency (Chronic) Mild (1+) per echo 04/29/2019 Right ventricular dilation (Chronic) Factor V Leiden (Chronic) History of coronary artery stent placement (Chronic ~05/28/11) PCI-SYDNIE-Mid and Prox LAD and SYDNIE-Distal RCA @ [facility] Atherosclerosis of coronary artery of [place] heart without angina pectoris (Chronic) PCI-SYDNIE-Mid and Prox LAD and SYDNIE-Distal RCA @ [facility] DVT (deep venous thrombosis) (Chronic) GERD (gastroesophageal reflux disease) (Chronic) Hyperlipidemia (Chronic) Hypertension (Chronic) Medical History: Medical History (Last Reviewed 09/12/20 @ 13:[address] Chris Ga, DO) Secondary pulmonary hypertension (Chronic) RVSP 39 mmhg per echo 04/29/2019 Nonrheumatic tricuspid (valve) insufficiency (Chronic) I36.1 Mild (1+) PER ECHO 04/29/2019 Nonrheumatic aortic (valve) insufficiency (Chronic) I35.1 Mild (1+) per echo 04/29/2019 Right ventricular dilation (Chronic) I51.7 Factor V Leiden (Chronic) D68.51 Atherosclerosis of coronary artery of [place] heart without angina pectoris (Chronic) I25.10 PCI-SYDNIE-Mid and Prox LAD and SYDNIE-Distal RCA @ [facility] DVT (deep venous thrombosis) (Chronic) I82.409 GERD (gastroesophageal reflux disease) (Chronic) K21.9 Hyperlipidemia (Chronic) E78.5 Hypertension (Chronic) I10 Factor V Leiden D68.51 Obstructive sleep apnea G47.33 Allergies atorvastatin [From Lipitor] Adverse Reaction (Severe, Verified 05/16/20 11:11) Intolerence, elevated LFT's Home Medications: Ambulatory Orders Medication Instructions Recorded Aspirin [Aspirin, Baby] 81 mg PO DAILY@2330 09/14/13 Citalopram [Celexa] 40 mg PO DAILY 09/14/13 Mirtazapine [Remeron] 30 mg PO QHS 09/14/13 pantoprazole 40 mg tablet,delayed 40 mg PO QDAY 01/27/18 release multivitamin,oo-drlr-glihonxo 1 tab PO DAILY 08/07/18 amlodipine 5 mg tablet 5 mg PO DAILY #90 tab 05/16/20 cholestyramine-aspartame 4 gram 4 g PO BID #180 packet 05/16/20 oral powder fenofibrate 160 mg tablet 160 mg PO DAILY #90 tab 05/16/20 hydrochlorothiazide 25 mg tablet 25 mg PO DAILY #90 tab 05/16/20 lisinopril 40 mg tablet 40 mg PO BID #180 tab 05/16/20 metoprolol tartrate 100 mg tablet 50 mg PO BID #90 tab 05/16/20 rosuvastatin 20 mg tablet 20 mg PO QDAY #90 tab 05/16/20 trazodone 50 mg tablet 50 mg PO DAILY 05/16/20 warfarin 1 mg tablet 2 mg PO .COMPLEX 05/16/20 Surgical History: Surgical History (Last Reviewed 09/12/20 @ 13:[address] Chris Ga DO) History of coronary artery stent placement (Chronic) Onset Date: ~05/28/11 Z95.5 PCI-SYDNIE-Mid and Prox LAD and SYDNIE-Distal RCA @ [facility] H/O right knee surgery Z98.890 H/O umbilical hernia repair Z98.890, Z87.19 History of appendectomy Z98.890, Z90.49 Previous back surgery Z98.890 Surgical History: - - PCI x 3, Umbilical hernia repair, R femoral hernia repair, R arthroscopic knee surgery and patellar dislocation repair, L4-L5 back surgery w/ hardware. Psychiatric History: Anxiety, Depression Smoking Status: Former smoker - *Family History Maternal Family History: Family History (Last Reviewed 09/12/20 @ 13:[address] Chris Ga DO) Father CAD (coronary artery disease) History Items: Cancer - Maternal history of pancreatitis cancer. Maternal family history of cancer in sisters and patient female siblings. Paternal Family History: Family History (Last Reviewed 09/12/20 @ 13:[address] Chris Ga DO) Father CAD (coronary artery disease) History Items: Heart Disease - Hx CABG. Review of Systems Constitutional: Denies: Anorexia, Fever, Night Sweats Eyes: Denies: Blurred vision, Double vision HEENT: Denies: Head Aches, Sinus Congestion, Sinus Drainage Cardiovascular: Reports: Chest Pain. Denies: Edema Respiratory: Reports: Shortness of breath upon exertion. Denies: Cough Gastrointestinal: Denies: Nausea, Vomiting Musculoskeletal: Reports: Arm Pain Skin: Denies: Rash, Wounds Hematologic/ Lymphatic: Reports: Easy Bleeding, Hx of blood clot. Denies: Easy Bruising Comment: All review of systems were negative except as mentioned above in the history of present illness and the other review of systems. VTE Information - Inpt Only VTE Present on Admission: No VTE Mechan Device Prophylaxis: None VTE Pharm Prophylaxis ordered?: No Reason prophylaxis not ordered:: Treatment Not Indicated - Physical Exam Vitals/I&O's: Vital Signs Temp Pulse Resp BP Pulse Ox 36.9 C 56 L 20 H 144/78 H 95 09/12/20 12:55 09/12/20 12:55 09/12/20 12:55 09/12/20 12:55 09/12/20 12:55 Oxygen Delivery Method Room Air Weight: 87 kg Body Mass Index (BMI) 27.5 General: Alert, Cooperative, No apparent distress HEENT: Atraumatic, Normocephalic Neck: No Nodes, Thyroid Normal Size and Texture Lungs: Clear to auscultation, Normal air movement, No rhonchi, No wheeze, No rales Cardiovascular: Regular rate, Regular Rhythm, Normal S1, Normal S2, No murmurs Abdomen: Bowel Sounds Present, Soft, Non Tender, Non-Distended, No Hepato-splenomegaly Extremities: No edema, No Calf Tenderness Skin: No rashes, No breakdown Musculoskeletal: No Tenderness to Palpation of Joints or Extremities, No Muscle Wasting Psych/Mental Status: Normal Affect, Appropriate Laboratory Results 09/12/20 11:36: WBC 9.7, RBC 4.96, Hgb 15.9, Hct 45.1, MCV 90.9, MCH 32.1 H, MCHC 35.3, RDW Std Deviation 44.0 H, RDW Coeff of Dontrell 14.8 H, Plt Count 242, MPV 10.3, Immature Gran % (Auto) 0.500, Neut % (Auto) 69.9, Lymph % (Auto) 19.8, [place] % (Auto) 7.0, Eos % (Auto) 2.2, Baso % (Auto) 0.6, Absolute Neuts (auto) 6.8, Absolute Lymphs (auto) 1.93, Nucleated RBC % 0 09/12/20 11:36: PT 20.1 H, INR 1.8 09/12/20 11:36: Sodium 136, Potassium 3.6, Chloride 101, Carbon Dioxide 31.0, Anion Gap 4 L, BUN 23 H, Creatinine 1.27, Estim Creat Clear Calc 51.89, Est GFR (MDRD) Af Amer 71, Est GFR (MDRD) Non-Af 59 L, BUN/Creatinine Ratio 18.1, Glucose 122 H, Calcium 9.7, Troponin I < 0.015 EKG reviewed and showed right bundle branch block and left and anterior fascicular block but normal sinus rhythm. This was changed from 07/06/2017, which was last EKG in our system. Chest x-ray personally reviewed and showed normal airways, no pulmonary vascular edema, no infiltrate. Current Medications Sodium Chloride () 1,000 mls @ 150 mls/hr IV .Q6H40M BALDOMERO Last Admin: 09/12/20 12:15 Dose: 150 mls/hr Documented by: Nitroglycerin (Nitroglycerin Sl (Ed/Img/Cath) 0.4 Mg Tablet) 0.4 mg SUBLINGUAL Q5M PRN PRN Reason: Chest pain Assessment/Plan All Active Problems (Last Reviewed 05/16/20 @ 12:[address] David Morgan MD) Chest pain (Acute) 1. Chest pain: Suggestive of stable angina. MOE score 5, Sho score of 112 Patient already on aspirin and will continue Plan: Cycle troponins and check fasting lipid panel in the morning Nuclear stress in the morning Consult cardiology if troponins are elevated or if stress test is abnormal 2. History of DVT Patient had what sound like a provoked DVT several years ago after injury to his leg and developed the subsequent DVT at that time. Patient informs me that before he was taken off anticoagulation and checked a hypercoagulable panel which was positive for factor V Leiden deficiency. Patient never had a blood clot before. Recommendations: I advised patient to follow-up with the hematology to get their input on whether or not the patient still needs to be on anticoagulation being that he had what sound like a provoked clot in his leg. If so, could he go onto a factor X inhibitor, such as rivaroxaban or apixaban instead of warfarin. Plan: Going to hold his warfarin in case the patient does need a cardiac catheterization. 3. Advanced care planning: Discussed with the patient. Patient wishes to be full CODE STATUS. Case discussed with patient's at bedside. All questions were answered. OBSV E&M: [id number] Initial observation care L2
[2020-09-12] MEDS: Metoprolol Tartrate 50 MG Tablet PO (21:04)
[2020-09-12] MEDS: Mirtazapine 30 MG Tablet PO (21:04)
[2020-09-12] MEDS: Lisinopril 40 MG Tablet PO (21:05)
[2020-09-13] VITALS (7 sets, daily range): BP systolic 122–153; BP diastolic 72–82; PULSE 52–70; RESP 16–18; TEMP 36.4–36.9; O2SAT 94–95
[2020-09-13] MEDS: traZODone 50 MG Tablet PO (00:08)
[2020-09-13] MEDS: Aspirin 81 MG TAB.CHEW PO (05:29)
[2020-09-13] MEDS: Lisinopril 40 MG Tablet PO (05:29)
[2020-09-13 08:00] LABS: Cholesterol 166 mg/dL (200); High Density Lipoprotein 45 mg/dL; Triglycerides 287 mg/dL; Very Low Density Lipoprotein 57 mg/dL (5-40)
[2020-09-13 08:26] LABS: International Normalized Ratio 1.7; Prothrombin Time (Protime)PT. 19.6 SECONDS (11.7-14.9)
[2020-09-13] MEDS: Citalopram 40 MG TABLET PO (10:49)
[2020-09-13] MEDS: amLODIPine 5 MG Tablet PO (10:49)
[2020-09-13] MEDS: hydroCHLOROthiazide 25 MG Tablet PO (10:49)
[2020-09-13] MEDS: Pantoprazole Sodium 40 MG Tablet PO (10:49)
[2020-09-13] MEDS: Metoprolol Tartrate 50 MG Tablet PO (10:50)
--- NOTE | 2020-09-13 13:33 | STRESSREP_ITS ---
Stress Test Report Date: 09-13-2020 Procedure: Exercise tolerance test/imaging study Indications: Chest pain; CAD; PCI Consent: Per the patient Procedure: The patient exercised on a Surya protocol for 7 minutes and 30 seconds completing Stage II and 1 minute and 30 seconds of Stage III achieving a peak heart rate of 131 bpm (90% predicted maximal heart rate) with a peak blood pressure 182/90 mmHg and a peak MET capacity of 9 METs. The baseline ECG demonstrated sinus bradycardia; right bundle branch block pattern. The peak exercise ECG demonstrated no obvious ECG changes. There was a rare PVC during exercise. The functional capacity was considered good. There was no complaint of chest discomfort during exercise or recovery. The examination was discontinued secondary to dyspnea. Impression: 1. Technically adequate (percent predicted maximal heart rate greater than 85%) exercise tolerance test 2. Peak exercise ECG with continued right bundle branch block with no obvious ECG changes 3. There was a rare PVC during exercise 4. Nuclear images pending Myocardial perfusion imaging study: Technique: The patient was injected with 11.9 mCi of technetium 99m Cardiolite and subsequently rest SPECT Cardiolite nuclear imaging was obtained in the horizontal long, vertical long, and short axis views. The patient exercised on a Surya protocol for 7 minutes and 30 seconds completing Stage II and 1 minute and 30 seconds of Stage III achieving a peak heart rate of 131 bpm (90% predicted maximal heart rate) with a peak blood pressure 182/90 mmHg and a peak MET capacity of 9 METs. The patient was injected with 34.6 mCi of technetium 99m Cardiolite and subsequently stress SPECT Cardiolite nuclear imaging was obtained in the horizontal long, vertical long, and short axis views. A gated Cardiolite study at peak stress was obtained. Interpretation: Rest and stress SPECT Cardiolite nuclear imaging status post realignment, normalization, and attenuation correction, demonstrates the appearance of relative uniform tracer uptake and myocardial perfusion appearing within normal limits. There is end systolic thickening and brightening. The gated Cardiolite study demonstrates myocardial thickening and inward wall motion. The reported LVEF is 66%. Impression: 1. Rest and stress SPECT Cardiolite nuclear imaging demonstrate relative uniform tracer uptake and myocardial perfusion appearing within normal limits. 2. The gated Cardiolite study reports an LVEF of 66%. This note was generated with Material Mix[employer] software. It may contain incorrect words, spelling, and punctuation that were not noted in checking the note before signing.
--- NOTE | 2020-09-13 13:53 | PCM.DC ---
- Discharge Diagnoses Current Active Problems: Current Active and Chronic Problems (Last Reviewed 09/12/20 @ 13:[address] Chris Ga, DO) Chest pain (Acute) Secondary pulmonary hypertension (Chronic) RVSP 39 mmhg per echo 04/29/2019 Nonrheumatic tricuspid (valve) insufficiency (Chronic) Mild (1+) PER ECHO 04/29/2019 Nonrheumatic aortic (valve) insufficiency (Chronic) Mild (1+) per echo 04/29/2019 Right ventricular dilation (Chronic) Factor V Leiden (Chronic) History of coronary artery stent placement (Chronic ~05/28/11) PCI-SYDNIE-Mid and Prox LAD and SYDNIE-Distal RCA @ [facility] Atherosclerosis of coronary artery of [place] heart without angina pectoris (Chronic) PCI-SYDNIE-Mid and Prox LAD and SYDNIE-Distal RCA @ [facility] DVT (deep venous thrombosis) (Chronic) GERD (gastroesophageal reflux disease) (Chronic) Hyperlipidemia (Chronic) Hypertension (Chronic) You will use the following diet at home:: Cardiac Your food should be the consistency of: Regular Your liquids should be the consistency of: Regular/Thin Discharge Activity: Return to Normal Activity Call your doctor if you observe: Fever of 101 or Higher, Shortness of breath, Dizziness, Fainting spells, Swelling in the ankles, Chest pain, Increased palpitations (irregular heartbeat) Allergies/Adverse Reactions: Allergies atorvastatin [From Lipitor] Adverse Reaction (Severe, Verified 09/12/20 13:23) Intolerence, elevated LFT's Medications to take at Discharge Aspirin [Aspirin, Baby] 81 mg PO DAILY@2330 09/14/13 Citalopram [Celexa] 40 mg PO DAILY 09/14/13 Mirtazapine [Remeron] 30 mg PO QHS 09/14/13 pantoprazole 40 mg tablet,delayed release 40 mg PO QDAY 01/27/18 multivitamin,[id number]-uphg-gpwuvvki 1 tab PO DAILY 08/07/18 cholestyramine-aspartame 4 gram oral powder 4 g PO BID #180 packet 05/16/20 fenofibrate 160 mg tablet 160 mg PO DAILY #90 tab 05/16/20 hydrochlorothiazide 25 mg tablet 25 mg PO DAILY #90 tab 05/16/20 lisinopril 40 mg tablet 40 mg PO BID #180 tab 05/16/20 metoprolol tartrate 100 mg tablet 50 mg PO BID #90 tab 05/16/20 trazodone 50 mg tablet 50 mg PO QHS 05/16/20 warfarin 1 mg tablet 2 mg PO SUMOTUTHFR 05/16/20 Amlodipine [Norvasc] 5 mg PO QHS 09/12/20 Rosuvastatin Calcium [Crestor] 20 mg PO QHS 09/12/20 Warfarin [Coumadin] 3 mg PO WESA 09/12/20 Primary Care Physician: Leandro Milan MD [Primary Care Provider] - Please follow up with your Primary Care Physician in: 3-5 days Test Results: Test results from this visit will be discussed in further detail at your follow-up appointment, if applicable. Please Follow Up With: David Morgan MD When: 2-4 weeks
--- NOTE | 2020-09-13 14:05 | PCM.DC.SUM ---
Discharge Date and Diagnosis - Problem List Patient Problems: Active and Suspected Problems (Last Reviewed 09/12/20 @ 13:[address] Chris Ga DO) Chest pain (Acute) Date of Admission: 09/12/20 Date of Discharge: 09/13/20 - Primary Discharge Diagnosis Acute Problems: Active Problems (Last Reviewed 09/12/20 @ 13:[address] Chris Ga DO) Chest pain (Acute) - Secondary Discharge Diagnosis Chronic Problems: Chronic Problems (Last Reviewed 09/12/20 @ 13:[address] Chris Ga DO) Secondary pulmonary hypertension (Chronic) RVSP 39 mmhg per echo 04/29/2019 Nonrheumatic tricuspid (valve) insufficiency (Chronic) Mild (1+) PER ECHO 04/29/2019 Nonrheumatic aortic (valve) insufficiency (Chronic) Mild (1+) per echo 04/29/2019 Right ventricular dilation (Chronic) Factor V Leiden (Chronic) History of coronary artery stent placement (Chronic ~05/28/11) PCI-SYDNIE-Mid and Prox LAD and SYDNIE-Distal RCA @ [facility] Atherosclerosis of coronary artery of [place] heart without angina pectoris (Chronic) PCI-SYDNIE-Mid and Prox LAD and SYDNIE-Distal RCA @ [facility] DVT (deep venous thrombosis) (Chronic) GERD (gastroesophageal reflux disease) (Chronic) Hyperlipidemia (Chronic) Hypertension (Chronic) Hospital Course and Treatment Imaging Results: Stress Test Report Date: 09-13-2020 Procedure: Exercise tolerance test/imaging study Indications: Chest pain; CAD; PCI Consent: Per the patient Procedure: The patient exercised on a Surya protocol for 7 minutes and 30 seconds completing Stage II and 1 minute and 30 seconds of Stage III achieving a peak heart rate of 131 bpm (90% predicted maximal heart rate) with a peak blood pressure 182/90 mmHg and a peak MET capacity of 9 METs. The baseline ECG demonstrated sinus bradycardia; right bundle branch block pattern. The peak exercise ECG demonstrated no obvious ECG changes. There was a rare PVC during exercise. The functional capacity was considered good. There was no complaint of chest discomfort during exercise or recovery. The examination was discontinued secondary to dyspnea. Impression: 1. Technically adequate (percent predicted maximal heart rate greater than 85%) exercise tolerance test 2. Peak exercise ECG with continued right bundle branch block with no obvious ECG changes 3. There was a rare PVC during exercise 4. Nuclear images pending Myocardial perfusion imaging study: Technique: The patient was injected with 11.9 mCi of technetium 99m Cardiolite and subsequently rest SPECT Cardiolite nuclear imaging was obtained in the horizontal long, vertical long, and short axis views. The patient exercised on a Surya protocol for 7 minutes and 30 seconds completing Stage II and 1 minute and 30 seconds of Stage III achieving a peak heart rate of 131 bpm (90% predicted maximal heart rate) with a peak blood pressure 182/90 mmHg and a peak MET capacity of 9 METs. The patient was injected with 34.6 mCi of technetium 99m Cardiolite and subsequently stress SPECT Cardiolite nuclear imaging was obtained in the horizontal long, vertical long, and short axis views. A gated Cardiolite study at peak stress was obtained. Interpretation: Rest and stress SPECT Cardiolite nuclear imaging status post realignment, normalization, and attenuation correction, demonstrates the appearance of relative uniform tracer uptake and myocardial perfusion appearing within normal limits. There is end systolic thickening and brightening. The gated Cardiolite study demonstrates myocardial thickening and inward wall motion. The reported LVEF is 66%. Impression: 1. Rest and stress SPECT Cardiolite nuclear imaging demonstrate relative uniform tracer uptake and myocardial perfusion appearing within normal limits. 2. The gated Cardiolite study reports an LVEF of 66%. Operations: None Procedures: Nuclear stress test Summary of Care Provided: Per HPI: The patient is a 75 year old M has been experiencing intermittent chest pain over the past several weeks. More recently, the , patient has been having dyspnea on exertion to the point where he is having labored breathing going up a flight of stairs at his home which is new. Patient has had a history of coronary artery disease and stents and had similar chest pain but and shortness of breath but much more severe at that time than this time. Patient was concerned that about 4 days ago, he was doing some heavy lifting and aggravated his back. Patient stated that his chest pain did radiate to his back his chest pain is left-sided and goes up to his left shoulder and left neck. Patient did receive nitroglycerin in the emergency room and is currently chest pain-free at this time. Hospital Course: 1. Chest pain/HTN/HLD/history of CAD status post stent/pulmonary [id number] male been having increasing dyspnea with exertion over the last several weeks with intermittent chest pain. He states that his chest pain is much improved today however it did occur during his stress test. He had 3 - troponins and nonischemic EKG. His stress test was unremarkable, did not show any wall motion abnormalities and his ejection fraction was around 66%. 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 However he states that he was developing his dyspnea and shortness of breath during the stress test and EKG portion was unremarkable. I discussed with him the plan for discharge and he expressed understanding of the risk and benefits of going home and would like to go home today. No changes were made to his medications. 2. Anxiety, depression, history of DVT with factor V Leiden are all chronic medical conditions which complicate his care. His home medications were continued where appropriate. It does appear that his previous DVT was provoked therefore was recommended to him to follow-up with hematology as to whether he needs to continue with his anticoagulation despite his factor V Leiden given that his previous DVT was provoked. Patient Problems: Active and Suspected Problems (Last Reviewed 09/12/20 @ 13:[address] Chris Ga, DO) Chest pain (Acute) - Physical Exam Vitals/I&O's: Vital Signs Temp Pulse Resp BP Pulse Ox 98.1 F 70 16 138/80 H 95 09/13/20 10:57 09/13/20 10:57 09/13/20 10:57 09/13/20 10:57 09/13/20 10:57 Oxygen Delivery Method Room Air Weight: 183 lb 12.8 oz Body Mass Index (BMI) 26.4 Intake and Output for Last 24 Hours 09/11/20 09/12/20 09/13/20 23:59 23:59 23:59 Intake Total 1660 / 1660 180 / 180 Balance 1660 / 1660 180 / 180 General: Alert, Oriented x3, Cooperative, No apparent distress HEENT: Atraumatic, PERRLA, EOMI, Normocephalic Oral: Moist Mucosa Neck: Supple, No JVD Lungs: Clear to auscultation, Normal air movement, No rhonchi, No wheeze, No rales Cardiovascular: Regular rate, Regular Rhythm, Normal S1, Normal S2, No murmurs Abdomen: Soft, Non Tender, Non-Distended, No Hepato-splenomegaly Extremities: No edema, Capillary Refill Less than 3 Seconds Skin: No rashes, No breakdown Neurological: Neuro grossly intact, Sensory exam intact to light touch and pain Psych/Mental Status: Normal Affect, Appropriate Laboratory Results 09/12/20 15:00: Troponin I < 0.015 09/12/20 17:05: Troponin I < 0.015 09/13/20 07:00: Triglycerides 287 H, Cholesterol 166, LDL Cholesterol 64, VLDL Cholesterol 57 H, HDL Cholesterol 45 09/13/20 07:00: PT 19.6 H, INR 1.7 Current Medications Acetaminophen (Acetaminophen 325 Mg Tablet) 650 mg PO Q6H PRN PRN PRN Reason: Pain Score 1-10/Temp > 100.7 F Amlodipine Besylate (Amlodipine 5 Mg Tablet) 5 mg PO DAILY [facility] Last Admin: 09/13/20 10:49 Dose: 5 mg Documented by: Aspirin (Aspirin 81 Mg Tab.Chew) 81 mg PO DAILY@2330 [facility] Last Admin: 09/13/20 05:29 Dose: 81 mg Documented by: Citalopram Hydrobromide (Citalopram 40 Mg Tablet) 40 mg PO DAILY [facility] Last Admin: 09/13/20 10:49 Dose: 40 mg Documented by: Fenofibrate (Fenofibrate 145 Mg Tablet) 145 mg PO DAILY [facility] Hydrochlorothiazide (Hydrochlorothiazide 25 Mg Tablet) 25 mg PO DAILY [facility] Last Admin: 09/13/20 10:49 Dose: 25 mg Documented by: Lisinopril (Lisinopril 40 Mg Tablet) 40 mg PO BID [facility] Last Admin: 09/13/20 05:29 Dose: 40 mg Documented by: Metoprolol Tartrate (Metoprolol Tartrate 50 Mg Tablet) 50 mg PO BID [facility] Last Admin: 09/13/20 10:50 Dose: 50 mg Documented by: Mirtazapine (Mirtazapine 30 Mg Tablet) 30 mg PO QHS [facility] Last Admin: 09/12/20 21:04 Dose: 30 mg Documented by: Morphine Sulfate (Morphine 2 Mg/Ml Syringe) 2 mg IV Q3H PRN PRN PRN Reason: breakthrough pain Nitroglycerin (Nitroglycerin (Inpatient Use) 0.4 Mg Tab.Subl) 0.4 mg SUBLINGUAL Q5M PRN PRN Reason: CARDIAC/CHEST PAIN Oxycodone HCl (Oxycodone 5 Mg Tablet) 5 mg PO Q4H PRN PRN PRN Reason: Pain Score 4-5 Oxycodone HCl (Oxycodone 5 Mg Tablet) 10 mg PO Q4H PRN PRN PRN Reason: Pain Score 6-10 Pantoprazole Sodium (Pantoprazole Sodium 40 Mg Tablet) 40 mg PO DAILY [facility] Last Admin: 09/13/20 10:49 Dose: 40 mg Documented by: Rosuvastatin Calcium (Rosuvastatin 20 Mg Tablet) 20 mg PO QHS [facility] Last Admin: 09/12/20 21:05 Dose: Not Given Documented by: Sodium Chloride (0.9% Saline Lock 10 Ml Syringe) 10 - 40 ml IV UD PRN PRN Reason: SALINE FLUSH Trazodone HCl (Trazodone 50 Mg Tablet) 50 mg PO QHS [facility] Discharge Activity: Return to Normal Activity Call your doctor if you observe: Fever of 101 or Higher, Shortness of breath, Dizziness, Fainting spells, Swelling in the ankles, Chest pain, Increased palpitations (irregular heartbeat) Home Medications: Medications to take at Discharge Aspirin [Aspirin, Baby] 81 mg PO DAILY@2330 09/14/13 Citalopram [Celexa] 40 mg PO DAILY 09/14/13 Mirtazapine [Remeron] 30 mg PO QHS 09/14/13 pantoprazole 40 mg tablet,delayed release 40 mg PO QDAY 01/27/18 multivitamin,oc-yvvp-hupsekue 1 tab PO DAILY 08/07/18 cholestyramine-aspartame 4 gram oral powder 4 g PO BID #180 packet 05/16/20 fenofibrate 160 mg tablet 160 mg PO DAILY #90 tab 05/16/20 hydrochlorothiazide 25 mg tablet 25 mg PO DAILY #90 tab 05/16/20 lisinopril 40 mg tablet 40 mg PO BID #180 tab 05/16/20 metoprolol tartrate 100 mg tablet 50 mg PO BID #90 tab 05/16/20 trazodone 50 mg tablet 50 mg PO QHS 05/16/20 warfarin 1 mg tablet 2 mg PO SUMOTUTHFR 05/16/20 Amlodipine [Norvasc] 5 mg PO QHS 09/12/20 Rosuvastatin Calcium [Crestor] 20 mg PO QHS 09/12/20 Warfarin [Coumadin] 3 mg PO WESA 09/12/20 Primary Care Physician: Leandro Milan MD [Primary Care Provider] - Please follow up with your Primary Care Physician in: 3-5 days Please Follow Up With: David Morgan MD When: 2-4 weeks Disposition: Home Minutes spent on discharge:: 35 Patient Condition:: Stable Medical Necessity - Tobacco Use Smoking Status: Former smoker Tobacco Use: Cigarettes, Chew Meaningful Use Info Meaningful Use Diagnoses (Choose all that apply): None applicable OBSV E&M: 64948 Observation care discharge
== END 2020-09-13 11:54 | disposition home or self-care (01) ==
LOC: ED 12:19 → PCU 13:43
PROVIDERS: Emergency Provider Emergency Medicine; PCP Family Medicine; Visit Provider Family Medicine
DX: R07.89 Other chest pain (principal); I27.29 Other secondary pulmonary hypertension; I25.10 Atherosclerotic heart disease of native coronary artery without angina pectoris; I45.2 Bifascicular block; E78.5 Hyperlipidemia, unspecified; F41.9 Anxiety disorder, unspecified; F32.9 Major depressive disorder, single episode, unspecified; R06.09 Other forms of dyspnea; K21.9 Gastro-esophageal reflux disease without esophagitis; I10 Essential (primary) hypertension; D68.51 Activated protein C resistance; Z95.5 Presence of coronary angioplasty implant and graft; Z79.899 Other long term (current) drug therapy; Z79.01 Long term (current) use of anticoagulants; Z79.82 Long term (current) use of aspirin; Z86.718 Personal history of other venous thrombosis and embolism; G47.33 Obstructive sleep apnea (adult) (pediatric); Z87.891 Personal history of nicotine dependence
CPT/HCPCS: 36415; 71045; 78452; 80048; 80061; 84484; 85025; 85610; 93005; 93017; 96360; 96361; 99218; 99285; A9500; J7030; A4216; G0378

== ENCOUNTER 2020-09-15 13:54 | Outpatient (RCR) | payer MEDICARE, OTHER, SELFPAY ==
[2020-09-12 14:26] VITALS: BMI 26.4
[2020-09-15] MEDS: COVID-19 VACC, MRNA(PFIZER)/PF 30 MCG/0.3 ML SYRINGE IM (12:38)
[2020-10-06] MEDS: COVID-19 VACC, MRNA(PFIZER)/PF 30 MCG/0.3 ML SYRINGE IM (12:25)
== END 2020-09-15 23:59 ==
LOC: IMMUN 13:54
PROVIDERS: PCP Family Medicine; Visit Provider Family Medicine
DX: Z23 Encounter for immunization (principal)
CPT/HCPCS: 0001A; 0002A; 91300

== ENCOUNTER → 2020-10-24 09:24 | Outpatient (CLI) | payer MEDICARE, OTHER, SELFPAY ==
[2020-05-16 11:03] VITALS: BMI 26.1
[2020-09-28 09:08] VITALS: BMI 26.5
[2020-10-24 10:59] LABS: ALB/GLOB Ratio 0.9 RATIO (0.9-2.4); AST(SGOT) 21 U/L (15-37); Alanine Aminotransfer ALT/SGPT 20 U/L (16-61); Albumin, Serum 3.7 g/dL (3.2-5.0); Alkaline Phosphatase 100 U/L (45-117); Anion Gap 7 (5-15); BUN 19 mg/dL (7-18); BUN/Creat Ratio 16.2 RATIO (10-20); Bilirubin, Direct 0.17 mg/dL (0.00-0.30); Calcium,Total 9.5 mg/dL (8.5-10.1); Chloride 102 mmol/L (98-107); Cholesterol 166 mg/dL (200); Creatinine, Serum 1.17 mg/dL (0.70-1.30); EST Glomerular Filtration Rate 65 mL/min (>60); Est Glom Filt Rate - Afr Amer 78 mL/min (>60); Globulin 4.1 g/dL (2.2-4.2); Glucose 83 mg/dL (74-106); High Density Lipoprotein 53 mg/dL; PSA,Total - Annual Screen 1.19 ng/mL (0.00-4.00); Protein, Total 7.8 g/dL (6.4-8.2); Sodium Level 137 mmol/L (136-145); Triglycerides 156 mg/dL; Very Low Density Lipoprotein 31 mg/dL (5-40)
== END ==
PROVIDERS: Nurse Practitioner Family; PCP Family Medicine; Referring Provider Family Medicine; Visit Provider Family Medicine
DX: E78.00 Pure hypercholesterolemia, unspecified (principal); E78.5 Hyperlipidemia, unspecified; I10 Essential (primary) hypertension; Z12.5 Encounter for screening for malignant neoplasm of prostate
CPT/HCPCS: 36415; 80053; 80061; 82248; 84153; G0103

== ENCOUNTER → 2020-11-22 14:50 | Outpatient (CLI) | payer MEDICARE, OTHER, SELFPAY ==
[2020-09-28 09:08] VITALS: BMI 26.5
--- NOTE | 2020-11-22 15:01 | RAD_ITS ---
STUDY: X-RAY CHEST REASON FOR EXAM: Male, 75 years old. DYSPNEA TECHNIQUE: PA and lateral views of the chest. COMPARISON: Comparison is made with prior study of 09/12/2020. FINDINGS: Calcified granulomas. No acute abnormality is seen. There is no demonstrated pleural abnormality. Normal size heart. Normal mediastinum and maria l. Normal visualized pulmonary arteries. There is atherosclerotic tortuosity of the aortic arch and descending thoracic aorta. There are diffuse degenerative changes of the visualized thoracic spine. Normal visualized ribs, clavicles, and shoulders. There is no demonstrated abnormality of the visualized soft tissue structures of the upper abdomen. RAD/Chest PA and Lateral IMPRESSION: Stable examination. No acute abnormality is seen. Electronically Signed: John Griffith MD at 15:22 EDT , Service support ,
[2020-11-22 18:09] LABS: Absolute Lymphocyte Count 1.92 X10^3/uL (0.83-4.51); Absolute Neutrophil Count 6.3 X10^3/uL (2.0-7.7); Basophil# 0.04 X10^3/uL; Basophil% 0.4 % (0-1); Eosinophil# 0.09 X10^3/uL; Hematocrit 44.2 % (40-54); Hemoglobin 13.7 g/dL (13.0-16.5); Lymphocyte # 1.92 X10^3/ul (0.83-4.51); Lymphocyte % 20.4 % (19-41); Mean Corpuscular Volume 90.4 fL (80-94); Monocyte# 1.01 X10^3/uL; Monocyte% 10.7 % (0-10); NRBC Flagged by Analyzer 0 % (0-5); Neutrophil # 6.31 X10^3/uL (2.7-7.7); Neutrophil % 67.2 % (47-70); Platelet Count 334 K/mm3 (150-450); RBC Distribution Width CV 12.7 % (11.6-14.6); Red Blood Count 4.89 M/mm3 (4.6-6.2); White Blood Count 9.4 K/mm3 (4.4-11.0)
[2020-11-22 18:47] LABS: ALB/GLOB Ratio 0.7 RATIO (0.9-2.4); AST(SGOT) 17 U/L (15-37); Alanine Aminotransfer ALT/SGPT 17 U/L (16-61); Albumin, Serum 3.6 g/dL (3.2-5.0); Alkaline Phosphatase 89 U/L (45-117); Anion Gap 7 (5-15); BUN 22 mg/dL (7-18); BUN/Creat Ratio 17.6 RATIO (10-20); Calcium,Total 9.8 mg/dL (8.5-10.1); Chloride 100 mmol/L (98-107); Creatinine, Serum 1.25 mg/dL (0.70-1.30); EST Glomerular Filtration Rate 60 mL/min (>60); Est Glom Filt Rate - Afr Amer 72 mL/min (>60); Globulin 5.2 g/dL (2.2-4.2); Glucose 68 mg/dL (74-106); Potassium 4.3 mmol/L (3.5-5.1); Protein, Total 8.8 g/dL (6.4-8.2); Sodium Level 136 mmol/L (136-145); Thyroid Stim Hormone (TSH) 1.12 uIU/mL (0.358-3.74)
== END ==
PROVIDERS: PCP Family Medicine; Referring Provider Family Medicine; Visit Provider Family Medicine
DX: R06.00 Dyspnea, unspecified (principal)
CPT/HCPCS: 36415; 71046; 80053; 84443; 85025

== ENCOUNTER → 2021-05-19 08:36 | Outpatient (CLI) | payer MEDICARE, OTHER, SELFPAY ==
[2021-05-19 10:24] LABS: AST(SGOT) 22 U/L (15-37); Alanine Aminotransfer ALT/SGPT 20 U/L (16-61); Albumin, Serum 3.7 g/dL (3.2-5.0); Alkaline Phosphatase 85 U/L (45-117); Cholesterol 167 mg/dL (200); Globulin 5.1 g/dL (2.2-4.2); High Density Lipoprotein 55 mg/dL; Protein, Total 8.8 g/dL (6.4-8.2); Triglycerides 122 mg/dL; Very Low Density Lipoprotein 24 mg/dL (5-40)
== END ==
PROVIDERS: PCP Family Medicine; Referring Provider Nurse Practitioner Family; Visit Provider Nurse Practitioner Family
DX: E78.5 Hyperlipidemia, unspecified (principal); E78.00 Pure hypercholesterolemia, unspecified
CPT/HCPCS: 36415; 80061; 80076

== ENCOUNTER 2021-09-22 09:04 | Outpatient (CLI) | payer MEDICARE, OTHER, SELFPAY ==
[2021-09-22 10:33] LABS: AST(SGOT) 21 U/L (15-37); Alanine Aminotransfer ALT/SGPT 21 U/L (16-61); Alkaline Phosphatase 83 U/L (45-117); Anion Gap 6 (5-15); BUN 25 mg/dL (7-18); BUN/Creat Ratio 19.5 RATIO (10-20); Calcium,Total 9.5 mg/dL (8.5-10.1); Chloride 103 mmol/L (98-107); Cholesterol 174 mg/dL (200); Creatinine, Serum 1.28 mg/dL (0.70-1.30); EST Glomerular Filtration Rate 58 mL/min (>60); Est Glom Filt Rate - Afr Amer 70 mL/min (>60); Glucose 90 mg/dL (74-106); High Density Lipoprotein 55 mg/dL; Sodium Level 139 mmol/L (136-145); Triglycerides 117 mg/dL; Very Low Density Lipoprotein 23 mg/dL (5-40)
== END 2021-09-22 23:59 | disposition home or self-care (01) ==
LOC: MFPLAB 09:05
PROVIDERS: PCP Family Medicine; Referring Provider Family Medicine; Visit Provider Family Medicine
DX: I10 Essential (primary) hypertension (principal)
CPT/HCPCS: 36415; 80053; 80061

== ENCOUNTER → 2021-11-28 | Outpatient (CLI) | payer MEDICARE, OTHER, SELFPAY ==
[2021-11-28 10:43] LABS: AST(SGOT) 18 U/L (15-37); Alanine Aminotransfer ALT/SGPT 20 U/L (16-61); Albumin, Serum 3.8 g/dL (3.2-5.0); Alkaline Phosphatase 83 U/L (45-117); Bilirubin, Direct 0.24 mg/dL (0.00-0.30); Cholesterol 160 mg/dL (200); Globulin 4.4 g/dL (2.2-4.2); High Density Lipoprotein 52 mg/dL; Protein, Total 8.2 g/dL (6.4-8.2); Triglycerides 129 mg/dL; Very Low Density Lipoprotein 26 mg/dL (5-40)
== END | disposition home or self-care (01) ==
LOC: LAB 09:07
PROVIDERS: PCP Family Medicine; Referring Provider Nurse Practitioner Family; Visit Provider Nurse Practitioner Family
DX: E78.00 Pure hypercholesterolemia, unspecified (principal); E78.5 Hyperlipidemia, unspecified
CPT/HCPCS: 36415; 80061; 80076

== ENCOUNTER → 2021-12-29 | Outpatient (CLI) | payer MEDICARE, OTHER, SELFPAY | END | disposition home or self-care (01) | LOC: LABSPEC 10:27 | PROVIDERS: PCP Family Medicine; Referring Provider Family Medicine; Visit Provider Family Medicine | DX: Z20.822 Contact with and (suspected) exposure to COVID-19 (principal) | CPT/HCPCS: 87635; U0003; U0005 ==

== ENCOUNTER → 2022-05-24 | Outpatient (CLI) | payer MEDICARE, OTHER, SELFPAY ==
[2022-05-24 11:49] LABS: Hematocrit 45.2 % (40-54); Hemoglobin 14.8 g/dL (13.0-16.5); Mean Corp Hgb Conc 32.7 g/dL (32-36); Mean Corpuscular Hgb 29.3 pg (27.0-32.0); Mean Corpuscular Volume 89.5 fL (80-94); Mean Platelet Vol. 10.5 fl (6.2-12.0); Platelet Count 239 K/mm3 (150-450); RBC Distribution Width CV 12.2 % (11.6-14.6); RBC Distribution Width SD 40.1 fl (35.1-43.9); Red Blood Count 5.05 M/mm3 (4.6-6.2); White Blood Count 6.5 K/mm3 (4.4-11.0)
[2022-05-24 12:14] LABS: AST(SGOT) 22 U/L (15-37); Alanine Aminotransfer ALT/SGPT 20 U/L (16-61); Albumin, Serum 3.9 g/dL (3.2-5.0); Alkaline Phosphatase 74 U/L (45-117); Bilirubin, Direct 0.26 mg/dL (0.00-0.30); Cholesterol 169 mg/dL (200); Globulin 4.2 g/dL (2.2-4.2); High Density Lipoprotein 64 mg/dL; Protein, Total 8.1 g/dL (6.4-8.2); Triglycerides 98 mg/dL; Very Low Density Lipoprotein 20 mg/dL (5-40)
[2022-05-24 12:18] LABS: Anion Gap 9 (5-15); BUN 21 mg/dL (7-18); BUN/Creat Ratio 18.6 RATIO (10-20); Chloride 101 mmol/L (98-107); Creatinine, Serum 1.13 mg/dL (0.70-1.30); EST Glomerular Filtration Rate 67 mL/min (>60); Est Glom Filt Rate - Afr Amer 81 mL/min (>60); Glucose 98 mg/dL (74-106); Potassium 3.9 mmol/L (3.5-5.1); Sodium Level 140 mmol/L (136-145)
== END | disposition home or self-care (01) ==
LOC: LAB 10:07
PROVIDERS: PCP Family Medicine; Visit Provider Nurse Practitioner Family
DX: I25.10 Atherosclerotic heart disease of native coronary artery without angina pectoris (principal); E78.5 Hyperlipidemia, unspecified
CPT/HCPCS: 36415; 80048; 80061; 80076; 85027

== ENCOUNTER → 2022-08-27 | Outpatient (CLI) | payer MEDICARE, OTHER, SELFPAY ==
[2022-08-27 15:34] LABS: Hematocrit 44.7 % (40-54); Hemoglobin 14.9 g/dL (13.0-16.5); Mean Corp Hgb Conc 33.3 g/dL (32-36); Mean Corpuscular Hgb 29.9 pg (27.0-32.0); Mean Corpuscular Volume 89.6 fL (80-94); Mean Platelet Vol. 11.2 fl (6.2-12.0); Platelet Count 254 K/mm3 (150-450); RBC Distribution Width CV 12.4 % (11.6-14.6); RBC Distribution Width SD 40.7 fl (35.1-43.9); Red Blood Count 4.99 M/mm3 (4.6-6.2); White Blood Count 7.5 K/mm3 (4.4-11.0)
[2022-08-27 16:06] LABS: Vitamin B12 367 pg/mL (211-911)
[2022-08-27 16:47] LABS: AST(SGOT) 16 U/L (15-37); Alanine Aminotransfer ALT/SGPT 21 U/L (16-61); Albumin, Serum 3.9 g/dL (3.2-5.0); Alkaline Phosphatase 60 U/L (45-117); Anion Gap 7 (5-15); BUN 31 mg/dL (7-18); Calcium,Total 9.9 mg/dL (8.5-10.1); Chloride 105 mmol/L (98-107); Creatinine, Serum 1.15 mg/dL (0.70-1.30); EST Glomerular Filtration Rate 66 mL/min (>60); Est Glom Filt Rate - Afr Amer 79 mL/min (>60); Globulin 4.1 g/dL (2.2-4.2); Glucose 96 mg/dL (74-106); Potassium 3.9 mmol/L (3.5-5.1); Sodium Level 140 mmol/L (136-145); Thyroid Stim Hormone (TSH) 1.26 uIU/mL (0.358-3.74)
[2022-08-31 01:07] LABS: Free Kappa Light Chains 106.8 mg/L (3.3-19.4); Free Lambda Light Chains 8.4 mg/L (5.7-26.3)
== END | disposition home or self-care (01) ==
LOC: MTLAB 12:43
PROVIDERS: PCP Family Medicine; Referring Provider Psychiatry & Neurology Neurology; Visit Provider Psychiatry & Neurology Neurology
DX: F03.90 Unspecified dementia, unspecified severity, without behavioral disturbance, psychotic disturbance, mood disturbance, and anxiety (principal); G62.9 Polyneuropathy, unspecified; I10 Essential (primary) hypertension
CPT/HCPCS: 36415; 80053; 82607; 82746; 83883; 84425; 84443; 85027

== ENCOUNTER → 2022-08-30 | Outpatient (CLI) | payer MEDICARE, OTHER, SELFPAY ==
--- NOTE | 2022-08-30 11:03 | MRI_ITS ---
STUDY: MRI BRAIN WITHOUT CONTRAST REASON FOR EXAM: Male, 77 years old. Dementia, worsening memory loss TECHNIQUE: Standardized multiplanar fat and water weighted pulse sequences were obtained. COMPARISON: None. FINDINGS: Normal size of the ventricles and extra-axial spaces for the patient''s age. Normal white matter tracts of the supratentorial brain. There is no evidence for recent intracranial ischemia or other cause of cytotoxic edema on diffusion weighted imaging (DWI). Normal T2* images of the brain without demonstrated susceptibility artifact. There is no demonstrated hemosiderin stain. No hydrocephalus is present. Normal bilateral basal ganglia. Normal thalami. There is no extra-axial fluid accumulation. Normal flow voids within the major intracranial circulation suggesting patency by spin echo criteria. Normal sella turcica, pituitary gland, infundibular stalk, optic chiasm and hypothalamus. Normal tectal plate and pineal gland. Normal midbrain, sallie and medulla. Normal cerebellum. Normal basal cisterns. Normal bilateral temporal bones. Normal bilateral internal auditory canals. No demonstrated orbital abnormality, within the constraints of a routine brain study. A small mucous retention cyst is present in the left maxillary sinus. Normal calvarium and skull base. Normal visualized soft tissue structures. Normal visualized upper cervical spine. MRI/Brain without Contrast IMPRESSION: 1. Mild chronic ischemic changes of the brain, as described above. 2. No evidence of acute infarction or intracranial hemorrhage. Electronically Signed: Marcos Abrams MD at 15:18 EST ,
== END | disposition home or self-care (01) ==
LOC: MRI 11:03
PROVIDERS: PCP Family Medicine; Referring Provider Psychiatry & Neurology Neurology; Visit Provider Psychiatry & Neurology Neurology
DX: F03.90 Unspecified dementia, unspecified severity, without behavioral disturbance, psychotic disturbance, mood disturbance, and anxiety (principal)
CPT/HCPCS: 70551

== ENCOUNTER 2022-10-26 13:48 | Emergency (ER) | payer MEDICARE, OTHER, SELFPAY ==
[2022-10-26 13:48] VITALS: BP 113/67; PULSE 49; RESP 16; TEMP 36.6; O2SAT 97
[2022-10-26 13:52] VITALS: BMI 21.4
--- NOTE | 2022-10-26 14:41 | EKG12_ITS ---
Test Reason : Blood Pressure : / mmHG Vent. Rate : 049 BPM Atrial Rate : 049 BPM P-R Int : 146 ms QRS Dur : 132 ms QT Int : 492 ms P-R-T Axes : 023 -54 054 degrees QTc Int : 444 ms Sinus bradycardia Right bundle branch block Left anterior fascicular block Bifascicular block Abnormal ECG Confirmed by HOUSTON OBREGON ([id number]), features editor YUSRA MATTSON ([id number]) on 10/30/2022 7:56:43 AM Referred By: Confirmed By:HOUSTON OBREGON
--- NOTE | 2022-10-26 14:42 | EDS_ITS ---
HPI HPI - Psych History of Present Illness Chief Complaint: Mental Health Informant: parent Limited: other (Mental health) Narrative Narrative: Patient is a 77-year-old male with history of major depressive disorder, catatonia, memory impairment and factor V Leiden presenting for behavior changes. History obtained by the patient's due to the patient not cooperating with history. Patient has been struggling with depression for the past 6 months or so. states that in June 2022 he was admitted at [facility]. His medications were switched at that time. They have now been following with Dr. Moreira in [place]. notes that over the past few days he has been having more panic attacks. He has been freaking out about things like there is too many passwords and worried about getting everything done. He has been making vague statements about how it is all going to end however he has not made any direct suicidal condiments. try to get him into the [employer] to keep him active however patient states his right leg was not working so he could drive it and then got out. notices that he has been walking normally. Last night he was complaining of being dizzy but he currently denies it however he will not give his version of things he just states his is getting things wrong. The does not think he needs to be admitted to a psychiatric unit however she wants to make sure there is nothing physical going on. 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 Home Medications aspirin 81 mg chewable tablet 81 mg PO QHS Heart health 09/14/13 [History Last Taken 09/12/20] pantoprazole 40 mg tablet,delayed release 40 mg PO QDAY gerd 01/27/18 [History Last Taken 09/12/20] fenofibrate 160 mg tablet 160 mg PO DAILY #90 tabs 05/28/22 [Rx Last Taken Unknown] hydrochlorothiazide 25 mg tablet 25 mg PO DAILY #90 tabs 05/28/22 [Rx Last Taken Unknown] lisinopril 40 mg tablet 40 mg PO BID #180 tabs 05/28/22 [Rx Last Taken Unknown] metoprolol tartrate 100 mg tablet 50 mg PO BID BP #90 tabs 05/28/22 [Rx Last Taken Unknown] rosuvastatin 20 mg tablet 20 mg PO QHS cholesterol #90 tabs 05/28/22 [Rx Last Taken Unknown] donepezil 10 mg tablet 10 mg PO QHS #90 tabs 08/22/22 [Rx Last Taken Unknown] mirtazapine 30 mg tablet 30 mg PO QHS Depression 30 days #30 tabs 09/06/22 [Rx Last Taken Unknown] escitalopram oxalate 10 mg tablet 10 mg PO DAILY #30 tabs 10/17/22 [Rx Last Taken Unknown] amlodipine 5 mg tablet 5 mg PO QHS blood pressure #90 tabs 10/19/22 [Rx Last Taken Unknown] Allergy/AdvReac Type Severity Reaction Status Date / Time atorvastatin [From Lipitor] AdvReac Severe Intolerence, Verified 10/26/22 13:48 elevated LFT's Family History Father CAD (coronary artery disease) Parkinson disease Mother Pancreatic cancer Sister Metastatic breast cancer Aunt Cancer maternal Grandmother Pancreatic cancer maternal Surgical History H/O right knee surgery H/O spinal fusion H/O umbilical hernia repair History of appendectomy History of coronary artery stent placement (~05/28/11) History of surgery on arm Previous back surgery Social History Smoking Status: Former smoker how long ago did patient quit smokin years ago alcohol intake: never caffeine: No ROS ROS ED Review of Systems ROS Unobtainable: due to mental condition EXAM Physical Exam Const Vital Signs: 10/26/22 13:48 10/26/22 14:48 10/26/22 15:48 Temperature 97.8 F Temperature Source Temporal Pulse Rate 49 L Respiratory Rate 16 18 18 Blood Pressure 113/67 Blood Pressure Mean 82 Pulse Ox 97 Oxygen Delivery Method Room Air 10/26/22 16:48 10/26/22 17:00 10/26/22 18:00 Temperature Temperature Source Pulse Rate Respiratory Rate 18 18 18 Blood Pressure Blood Pressure Mean Pulse Ox Oxygen Delivery Method Positive well nourished and well developed General Appearance ED: well developed and NAD HEENT Reports moist mucous membranes normocephalic and atraumatic Eyes PERRL and EOMs intact bilaterally Neck supple Neck Narrative: No nuchal rigidity Resp normal respiratory effort Cardio no murmurs Rate: regular rate Rhythm: regular rhythm GI non-tender and non-distended Palpation: soft Extremity normal to inspection Neuro Sensorium / Orientation: alert Motor Exam: muscle tone normal throughout; Negative for general weakness Psych Psych Narrative: Patient overall cooperative but minimally interactive throughout exam. When asked to open his eye he forcefully shut it. Will continually shy away from me during the exam. I do not appreciate any focal deficits. Appearance: grossly normal Attitude: calm, withdrawn and evasive Speech: minimal and delayed Memory / Cognition: cognition grossly intact Insight: limited Skin Lesions: no lesions Rashes: no rashes MDM MDM MDM Narrative Medical decision making narrative: Patient is evaluated for concern of worsening depression and what sounds like c atatonia. His is concerned that there could be some underlying medical reason for his symptoms and since he does not communicate well at baseline and is so depressed she could not tell. She wants to make sure there is no infection. Patient himself has no complaints however he did tell me he was dizzy yesterday. His vital signs are normal in the emergency room. He does not appear to have any focal neurologic deficits. He is bradycardic however this appears to be chronic. Patient is on metoprolol. does not think he would benefit from inpatient psychiatric admission. Case is discussed with his psychiatrist, Dr. Moreira, who does not think that he would likely benefit of inpatient psychiatry either. I will work on medication adjustments. Will likely either restart his Abilify or potentially try Ativan again. Patient is reevaluated after IV fluids. He did have a mild elevation of his creatinine of 1.37 but does not have criteria for SAMANTHA. He is now eating. He is more talkative and states he is feeling better. Would like to go home. is agreeable with this. Patient and are counseled to follow-up closely with psychiatry. Given return precautions. They verbalized agreement understand this plan. Discharged home in stable condition. Lab Data Attestation: I reviewed the patient's lab results. Labs: Laboratory Results - last 24 hr 10/26/22 10/26/22 10/26/22 15:08 15:08 15:08 WBC 7.5 RBC 4.78 Hgb 14.4 Hct 42.5 MCV 88.9 MCH 30.1 MCHC 33.9 RDW Std Deviation 39.5 RDW Coeff of [place] 12.1 Plt Count 258 MPV 10.8 Immature Gran % (Auto) 0.300 Neut % (Auto) 64.2 Lymph % (Auto) 27.4 [place] % (Auto) 6.5 Eos % (Auto) 0.9 Baso % (Auto) 0.7 Absolute Neuts (auto) 4.8 Absolute Lymphs (auto) 2.05 Nucleated RBC % 0 Sodium 138 Potassium 3.6 Chloride 103 Carbon Dioxide 30.0 Anion Gap 5 BUN 36 H Creatinine 1.37 H Estim Creat Clear Calc 43.43 Est GFR (MDRD) Af Amer 65 Est GFR (MDRD) Non-Af 54 L BUN/Creatinine Ratio 26.3 H Glucose 107 H Calcium 9.9 Total Bilirubin 0.80 AST 21 ALT 22 Alkaline Phosphatase 63 Total Protein 7.9 Albumin 3.9 Globulin 4.0 Albumin/Globulin Ratio 1.0 Urine Color Urine Clarity Urine pH Ur Specific [place] Urine Protein Urine Glucose (UA) Urine Ketones Urine Occult Blood Urine Nitrite Urine Bilirubin Urine Urobilinogen Ur Leukocyte Esterase Urine RBC Urine WBC Ur Squamous Epith Cells Urine Bacteria Urine Mucus Urine Opiates Screen Urine Methadone Screen Ur Barbiturates Screen Ur Phencyclidine Scrn Ur Amphetamines Screen MDMA (Ecstasy) Screen U Benzodiazepines Scrn Urine Cocaine Screen U Cannabinoids Screen Ur Drug Screen Comment Ethyl Alcohol < 3.0 10/26/22 10/26/22 15:52 15:52 WBC RBC Hgb Hct MCV MCH MCHC RDW Std Deviation RDW Coeff of [place] Plt Count MPV Immature Gran % (Auto) Neut % (Auto) Lymph % (Auto) [place] % (Auto) Eos % (Auto) Baso % (Auto) Absolute Neuts (auto) Absolute Lymphs (auto) Nucleated RBC % Sodium Potassium Chloride Carbon Dioxide Anion Gap BUN Creatinine Estim Creat Clear Calc Est GFR (MDRD) Af Amer Est GFR (MDRD) Non-Af BUN/Creatinine Ratio Glucose Calcium Total Bilirubin AST ALT Alkaline Phosphatase Total Protein Albumin Globulin Albumin/Globulin Ratio Urine Color Yellow Urine Clarity Sl. Cloudy Urine pH 7.0 Ur Specific [place] 1.010 Urine Protein 15 H Urine Glucose (UA) Normal Urine Ketones Negative Urine Occult Blood Negative Urine Nitrite Negative Urine Bilirubin Negative Urine Urobilinogen 1 H Ur Leukocyte Esterase 25 H Urine RBC 0 SEEN Urine WBC 5-10 SEEN Ur Squamous Epith Cells 0 SEEN Urine Bacteria 0 SEEN Urine Mucus 0 SEEN Urine Opiates Screen NEGATIVE Urine Methadone Screen NEGATIVE Ur Barbiturates Screen NEGATIVE Ur Phencyclidine Scrn NEGATIVE Ur Amphetamines Screen NEGATIVE MDMA (Ecstasy) Screen NEGATIVE U Benzodiazepines Scrn NEGATIVE Urine Cocaine Screen NEGATIVE U Cannabinoids Screen NEGATIVE Ur Drug Screen Comment Ethyl Alcohol Radiography Diagnostic Testing: Clinical Impression(s) from Imaging Studies Chest X-Ray 10/26/22 15:07 IMPRESSION: There are no acute findings. Electronically Signed: Panda Patterson MD at 15:32 EDT Reading Location ID and State: [facility] [place] / [place] , Service support , Rhythm Strip Rhythm Strip: Sinus Rhythm Rate: 49 Ectopy: None EKG Initial EKG: Attestation: I personally reviewed and interpreted this EKG as follows: Interpretation: Sinus Bradycardia Comments: Sinus bradycardia rate of 49 bpm Slight left axis Normal QRS and QTc Bifascicular block with right bundle branch block and left anterior fascicular block No change compared to prior EKG on 09/12/2020 Discharge Plan Triage Chief Complaint: Mental Health Other Complaint: Dizziness ED Provider: Delfina Khanna Dx/Rx/DC Orders Clinical Impression: Catatonia associated with another mental disorder, Dehydration Instructions: ED Dehydration (Adult), ED Depression Prescriptions: No Action pantoprazole 40 mg tablet,delayed release (DR/EC) 40 mg PO QDAY mirtazapine 30 mg tablet 30 mg PO QHS 30 Days Qty: 30 2RF donepezil 10 mg tablet 10 mg PO QHS Qty: 90 1RF Rx Instructions: Begin after completing one month of treatment of donepezil 5mg nightly escitalopram oxalate 10 mg tablet 10 mg PO DAILY Qty: 30 1RF aspirin 81 MG tablet,chewable 81 mg PO QHS Label Comments: [facility] fenofibrate 160 mg tablet 160 mg PO DAILY Qty: 90 4RF hydrochlorothiazide 25 mg tablet 25 mg PO DAILY Qty: 90 4RF lisinopril 40 mg tablet 40 mg PO BID Qty: 180 4RF metoprolol tartrate 100 mg tablet 50 mg PO BID Qty: 90 4RF Rx Instructions: Pt wants to get 100 mg tablets and break in half rosuvastatin 20 mg tablet 20 mg PO QHS Qty: 90 4RF amlodipine 5 mg tablet 5 mg PO QHS Qty: 90 4RF Primary Care Provider: Leandro Milan Referrals: Leandro Milan MD [Primary Care Provider] - Activity Restrictions/Additional Instructions: Please flow up closely with Dr. Moreira. Disposition Disposition: Home, Self Care Discharge Date/Time: 10/26/22 19:01
[2022-10-26 14:48] VITALS: RESP 18
--- NOTE | 2022-10-26 15:07 | RAD_ITS ---
STUDY: XR Chest 1 View 10/26/2022 3:05 PM REASON FOR EXAM: Male, 77 years old. CHEST PAIN AMS COMPARISON: 11/22/2020 TECHNIQUE: XR Chest 1 View FINDINGS: There is no demonstrated pleural abnormality. Stable right lower lobe calcified granuloma. Normal heart size. Normal mediastinum. Normal maria l. Prominent appearing increased interstitial lung markings. Normal visualized pulmonary arteries. There is atherosclerotic calcification of the aortic arch with tortuosity. There are diffuse degenerative changes of the visualized thoracic spine. There is degenerative osteoarthritis of the bilateral shoulders. There is no demonstrated abnormality of the visualized soft tissue structures of the upper abdomen. RAD/Chest 1 View (Portable) IMPRESSION: There are no acute findings. Electronically Signed: Panda Patterson MD at 15:32 EDT ,
[2022-10-26 15:26] LABS: Absolute Lymphocyte Count 2.05 X10^3/uL (0.83-4.51); Absolute Neutrophil Count 4.8 X10^3/uL (2.0-7.7); Basophil# 0.05 X10^3/uL; Basophil% 0.7 % (0-1); Eosinophil# 0.07 X10^3/uL; Eosinophils% 0.9 % (0-5); Hematocrit 42.5 % (40-54); Hemoglobin 14.4 g/dL (13.0-16.5); Lymphocyte # 2.05 X10^3/ul (0.83-4.51); Lymphocyte % 27.4 % (19-41); Mean Corp Hgb Conc 33.9 g/dL (32-36); Mean Corpuscular Hgb 30.1 pg (27.0-32.0); Mean Corpuscular Volume 88.9 fL (80-94); Mean Platelet Vol. 10.8 fl (6.2-12.0); Monocyte# 0.49 X10^3/uL; Monocyte% 6.5 % (0-10); NRBC Flagged by Analyzer 0 % (0-5); Neutrophil # 4.81 X10^3/uL (2.7-7.7); Neutrophil % 64.2 % (47-70); POSITIVE COUNT YES; Platelet Count 258 K/mm3 (150-450); RBC Distribution Width CV 12.1 % (11.6-14.6); RBC Distribution Width SD 39.5 fl (35.1-43.9); Red Blood Count 4.78 M/mm3 (4.6-6.2); White Blood Count 7.5 K/mm3 (4.4-11.0)
[2022-10-26 15:40] LABS: AST(SGOT) 21 U/L (15-37); Alanine Aminotransfer ALT/SGPT 22 U/L (16-61); Albumin, Serum 3.9 g/dL (3.2-5.0); Alkaline Phosphatase 63 U/L (45-117); Anion Gap 5 (5-15); BUN 36 mg/dL (7-18); BUN/Creat Ratio 26.3 RATIO (10-20); Calcium,Total 9.9 mg/dL (8.5-10.1); Chloride 103 mmol/L (98-107); Creatinine, Serum 1.37 mg/dL (0.70-1.30); EST Glomerular Filtration Rate 54 mL/min (>60); Est Glom Filt Rate - Afr Amer 65 mL/min (>60); Estimated Creatinine Clearance 43.43 ml/min; Glucose 107 mg/dL (74-106); Potassium 3.6 mmol/L (3.5-5.1); Protein, Total 7.9 g/dL (6.4-8.2); Sodium Level 138 mmol/L (136-145)
[2022-10-26 15:48] VITALS: RESP 18
[2022-10-26 16:04] LABS: Alcohol, Blood (Medical)-Serum < 3.0 mg/dL
[2022-10-26 16:31] LABS: Amphetamine Urine VISTA NEGATIVE (<1000 ng/mL); Barbiturate Urine VISTA NEGATIVE (< 200 ng/mL); Benzodiazepine Urine VISTA NEGATIVE (< 200 ng/mL); Cocaine Urine VISTA NEGATIVE (< 300 ng/mL); Ecstacy Urine VISTA NEGATIVE (< 500 ng/mL); Methadone Urine VISTA NEGATIVE (< 300 ng/mL); PCP Urine VISTA NEGATIVE (< 25 ng/mL); THC Urine VISTA NEGATIVE (< 50 ng/mL); Vista UDS pH Range 6
[2022-10-26 16:48] VITALS: RESP 18
[2022-10-26 17:00] VITALS: RESP 18
[2022-10-26 17:43] LABS: Bacteria 0 SEEN /hpf (None Seen); Color, Urine Yellow (Yellow); Glucose, Dipstick Normal (Normal); Ketone-Dipstick Negative (Negative); Leukocyte Esterase-Dipstick 25 /ul (Negative); Mucous, Urine 0 SEEN /hpf (<or=2+); Nitrite-Dipstick Negative (Negative); Occult Blood-Urine Negative /ul (Negative); Protein-Dipstick 15 mg/dl (Negative); Red Blood Cells-Urine 0 SEEN /hpf (0-5); Squamous Epithelial Cells - UA 0 SEEN /hpf (0-5); Urine Bilirubin Dipstick Negative (Negative); Urine Clarity Sl. Cloudy (Clear); Urine Urobilinogen 1 mg/dl (Normal)
[2022-10-26 17:56] LABS: White Blood Cells 5-10 SEEN /hpf (0-5)
[2022-10-26 18:00] VITALS: RESP 18
== END 2022-10-26 19:01 | disposition home or self-care (01) ==
PROVIDERS: Emergency Provider Emergency Medicine; PCP Family Medicine; Visit Provider Emergency Medicine
DX: F06.1 Catatonic disorder due to known physiological condition (principal); E86.0 Dehydration; Z87.891 Personal history of nicotine dependence; I10 Essential (primary) hypertension; R42 Dizziness and giddiness; I25.10 Atherosclerotic heart disease of native coronary artery without angina pectoris; E78.5 Hyperlipidemia, unspecified; Z79.899 Other long term (current) drug therapy
CPT/HCPCS: 71045; 80053; 80307; 81001; 82077; 85025; 87086; 87088; 93005; 96360; 99282; J7040; A4216

== ENCOUNTER → 2022-12-25 | Outpatient (CLI) | payer MEDICARE, OTHER, SELFPAY ==
[2022-12-25 15:41] LABS: Absolute Lymphocyte Count 1.26 X10^3/uL (0.83-4.51); Absolute Neutrophil Count 3.9 X10^3/uL (2.0-7.7); Basophil# 0.06 X10^3/uL; Basophil% 1.1 % (0-1); Eosinophil# 0.08 X10^3/uL; Eosinophils% 1.4 % (0-5); Hematocrit 44.7 % (40-54); Hemoglobin 14.6 g/dL (13.0-16.5); Lymphocyte # 1.26 X10^3/ul (0.83-4.51); Lymphocyte % 22.5 % (19-41); Mean Corp Hgb Conc 32.7 g/dL (32-36); Mean Corpuscular Hgb 29.6 pg (27.0-32.0); Mean Corpuscular Volume 90.5 fL (80-94); Mean Platelet Vol. 10.2 fl (6.2-12.0); Monocyte# 0.33 X10^3/uL; Monocyte% 5.9 % (0-10); NRBC Flagged by Analyzer 0 % (0-5); Neutrophil # 3.85 X10^3/uL (2.7-7.7); Neutrophil % 68.7 % (47-70); Platelet Count 175 K/mm3 (150-450); RBC Distribution Width CV 12.6 % (11.6-14.6); RBC Distribution Width SD 41.1 fl (35.1-43.9); Red Blood Count 4.94 M/mm3 (4.6-6.2); White Blood Count 5.6 K/mm3 (4.4-11.0)
[2022-12-25 15:56] LABS: Vitamin B12 536 pg/mL (211-911)
[2022-12-25 16:15] LABS: AST(SGOT) 25 U/L (15-37); Alanine Aminotransfer ALT/SGPT 19 U/L (16-61); Albumin, Serum 3.7 g/dL (3.2-5.0); Alkaline Phosphatase 44 U/L (45-117); Anion Gap 9 (5-15); BUN 23 mg/dL (7-18); BUN/Creat Ratio 17.4 RATIO (10-20); Chloride 101 mmol/L (98-107); Creatinine, Serum 1.32 mg/dL (0.70-1.30); EST Glomerular Filtration Rate 56 mL/min (>60); Est Glom Filt Rate - Afr Amer 68 mL/min (>60); Globulin 3.7 g/dL (2.2-4.2); Glucose 95 mg/dL (74-106); Magnesium 1.4 mg/dL (1.6-2.6); Potassium 3.7 mmol/L (3.5-5.1); Protein, Total 7.4 g/dL (6.4-8.2); Sodium Level 137 mmol/L (136-145)
[2022-12-28 14:09] LABS: Albumin 3.6 g/dL (2.9-4.4); Alpha-1-Globulins 0.3 g/dL (0.0-0.4); Alpha-2-Globulins 0.8 g/dL (0.4-1.0); Free Kappa Light Chains 114.3 mg/L (3.3-19.4); Free Lambda Light Chains 9.7 mg/L (5.7-26.3); Gamma Globulin 1.2 g/dL (0.4-1.8); Immunofixation Urine Comment: (.); Immunoglobulin A 55 mg/dL (61-437); Immunoglobulin G 1387 mg/dL (603-1613); Immunoglobulin M 39 mg/dL (15-143); PROEL- TOTAL PROTEIN 6.9 g/dL (6.0-8.5)
== END | disposition home or self-care (01) ==
LOC: MTLAB 13:04
PROVIDERS: PCP Family Medicine; Referring Provider Psychiatry & Neurology Neurology; Visit Provider Psychiatry & Neurology Neurology
DX: F03.90 Unspecified dementia, unspecified severity, without behavioral disturbance, psychotic disturbance, mood disturbance, and anxiety (principal); G61.9 Inflammatory polyneuropathy, unspecified; E46 Unspecified protein-calorie malnutrition; R63.4 Abnormal weight loss
CPT/HCPCS: 36415; 80053; 82140; 82607; 82652; 82746; 82784; 83735; 83883; 84165; 85025; 86334; 86335

== ENCOUNTER → 2023-01-23 | Outpatient (CLI) | payer MEDICARE, OTHER, SELFPAY ==
[2023-01-23 12:01] LABS: Bacteria 0 SEEN /hpf (None Seen); Mucous, Urine 0 SEEN /hpf (<or=2+); Red Blood Cells-Urine 0 SEEN /hpf (0-5)
[2023-01-23 15:11] LABS: Absolute Lymphocyte Count 1.39 X10^3/uL (0.83-4.51); Absolute Neutrophil Count 8.1 X10^3/uL (2.0-7.7); Basophil# 0.04 X10^3/uL; Basophil% 0.4 % (0-1); Eosinophil# 0.02 X10^3/uL; Eosinophils% 0.2 % (0-5); Hematocrit 37.5 % (40-54); Lymphocyte # 1.39 X10^3/ul (0.83-4.51); Lymphocyte % 13.4 % (19-41); Mean Corpuscular Hgb 29.5 pg (27.0-32.0); Mean Corpuscular Volume 92.1 fL (80-94); Mean Platelet Vol. 10.3 fl (6.2-12.0); Monocyte# 0.82 X10^3/uL; Monocyte% 7.9 % (0-10); NRBC Flagged by Analyzer 0 % (0-5); Neutrophil # 8.06 X10^3/uL (2.7-7.7); Neutrophil % 77.5 % (47-70); Platelet Count 313 K/mm3 (150-450); RBC Distribution Width CV 13.6 % (11.6-14.6); RBC Distribution Width SD 46.2 fl (35.1-43.9); Red Blood Count 4.07 M/mm3 (4.6-6.2); White Blood Count 10.4 K/mm3 (4.4-11.0)
[2023-01-23 15:18] LABS: Color, Urine Yellow (Yellow); Glucose, Dipstick Normal (Normal); Ketone-Dipstick Negative (Negative); Leukocyte Esterase-Dipstick 25 /ul (Negative); Nitrite-Dipstick Negative (Negative); Occult Blood-Urine Negative /ul (Negative); Protein-Dipstick Negative (Negative); Specific Gravity, Urine 1.015 (1.002-1.030); Urine Clarity Clear (Clear); Urine Urobilinogen 4 mg/dl (Normal)
[2023-01-23 15:34] LABS: Urine Bilirubin Dipstick 1 mg/dL (Negative)
[2023-01-23 15:41] LABS: Squamous Epithelial Cells - UA 0 SEEN /hpf (0-5); White Blood Cells 0-5 SEEN /hpf (0-5)
[2023-01-23 15:47] LABS: ALB/GLOB Ratio 0.6 RATIO (0.9-2.4); AST(SGOT) 33 U/L (15-37); Alanine Aminotransfer ALT/SGPT < 6 U/L (16-61); Albumin, Serum 2.8 g/dL (3.2-5.0); Alkaline Phosphatase 52 U/L (45-117); Anion Gap 9 (5-15); BUN 25 mg/dL (7-18); BUN/Creat Ratio 17.9 RATIO (10-20); Calcium,Total 9.7 mg/dL (8.5-10.1); Chloride 96 mmol/L (98-107); EST Glomerular Filtration Rate 52 mL/min (>60); Est Glom Filt Rate - Afr Amer 63 mL/min (>60); Globulin 4.7 g/dL (2.2-4.2); Glucose 88 mg/dL (74-106); Magnesium 1.6 mg/dL (1.6-2.6); Potassium 4.2 mmol/L (3.5-5.1); Prealbumin 11.8 mg/dL (20.0-40.0); Protein, Total 7.5 g/dL (6.4-8.2); Sodium Level 133 mmol/L (136-145); Thyroid Stim Hormone (TSH) 1.08 uIU/mL (0.358-3.74)
[2023-01-23 16:00] LABS: AST(SGOT) 35 U/L (15-37); Alanine Aminotransfer ALT/SGPT < 6 U/L (16-61); Albumin, Serum 2.9 g/dL (3.2-5.0); Alkaline Phosphatase 53 U/L (45-117); Bilirubin, Direct 0.51 mg/dL (0.00-0.30); Cholesterol 132 mg/dL (200); Globulin 4.7 g/dL (2.2-4.2); High Density Lipoprotein 39 mg/dL; Protein, Total 7.6 g/dL (6.4-8.2); Triglycerides 108 mg/dL; Very Low Density Lipoprotein 22 mg/dL (5-40)
[2023-01-23 16:17] LABS: Erythrocyte Sedimentation Rate 40 mm/hr (0-20)
== END | disposition home or self-care (01) ==
LOC: MFPLAB 11:53
PROVIDERS: Nurse Practitioner Family; PCP Family Medicine; Visit Provider Family Medicine
DX: R63.4 Abnormal weight loss (principal); D89.89 Other specified disorders involving the immune mechanism, not elsewhere classified; E78.00 Pure hypercholesterolemia, unspecified; R79.9 Abnormal finding of blood chemistry, unspecified
CPT/HCPCS: 36415; 80053; 80061; 80076; 81001; 83735; 84134; 84443; 85025; 85652; 86140

== ENCOUNTER → 2023-02-05 | Outpatient (CLI) | payer MEDICARE, OTHER, SELFPAY ==
--- NOTE | 2023-02-05 10:36 | US_ITS ---
STUDY: ABDOMINAL ULTRASOUND - RIGHT UPPER QUADRANT REASON FOR VISIT: Male, 77 years old bilirubin in urine TECHNIQUE: Ultrasound evaluation of the right upper quadrant was performed with real-time and static costello-scale imaging. TECHNICAL QUALITY: Limited. Examination limited due to the patient?s condition. COMPARISON: None. FINDINGS: Liver: The liver is enlarged and measures 18.7 cm. There is increased echogenicity consistent with fatty infiltration. The bile ducts are within normal limits. There is hepatic color flow. The direction of portal flow is hepatopetal. There is no demonstrated mass lesion. Gallbladder: Normal distended gallbladder. The gallbladder wall measures 1.5 mm. There is a negative sonographic Alva''s sign. There is no pericholecystic fluid. There are no gallstones. Common Bile Duct (C.B.D.): The common bile duct measures 4.4 mm. Pancreas: There is nonvisualization of the pancreas due to overlying bowel gas. Right Kidney: Normal size of the right kidney. The right kidney measures 9.8 cm x 4.2 cm x 5.2 cm. Normal renal cortex. The right cortex measures 1.3 cm. There is a 4.27 x 4.2 side by 4.2 cm cyst in the upper pole. There is no right hydronephrosis. US/Abdomen Limited IMPRESSION: Limited study. Hepatomegaly. Diffuse fatty infiltration of the liver. Electronically Signed: John Griffith MD at 14:28 EDT ,
--- NOTE | 2023-02-05 17:09 | MRI_ITS ---
EXAM: MR HEAD WITHOUT AND WITH INTRAVENOUS CONTRAST CLINICAL INDICATION: Progressive dementia; parkinsonism TECHNIQUE: Multiplanar and multisequence MR images of the brain were obtained without and with intravenous contrast. Magnetic field strength 1.5 T. CONTRAST: 14 cc of Clariscan IV. COMPARISON: MR brain 08/30/2022. FINDINGS: BRAIN AND EXTRA-AXIAL SPACES: Mild generalized atrophy. No intra- or extra-axial hemorrhage. No intracranial mass or mass effect. Basal cisterns are patent. No abnormal enhancement post gadolinium. SELLA: Unremarkable. Normal sella turcica, pituitary gland, infundibular stalk, optic chiasm and hypothalamus. AUDITORY SYSTEM: Unremarkable. The internal auditory canals are patent. BONES/JOINTS: Unremarkable. No discrete lytic or blastic abnormalities. SINUSES: Small retention cyst left maxillary sinus unchanged. MASTOID AIR CELLS: Unremarkable as visualized. Clear. ORBITS: Unremarkable as visualized. Both globes, extraocular muscles, optic nerves and retrobulbar fat appear unremarkable. VASCULATURE: Unremarkable as visualized. Normal flow voids in the major intracranial circulation. MRI/Brain W/WO Contrast IMPRESSION: 1. Mild generalized atrophy. 2. No change retention cyst left maxillary sinus. 3. No acute intracranial abnormality. No change since previous exam. Electronically Signed: Ildefonso Hawkins MD at 1:36 EDT ,
== END | disposition home or self-care (01) ==
PROVIDERS: PCP Family Medicine; Referring Provider Family Medicine; Visit Provider Family Medicine
DX: R82.2 Biliuria (principal); G20 Parkinson's disease; F03.90 Unspecified dementia, unspecified severity, without behavioral disturbance, psychotic disturbance, mood disturbance, and anxiety
CPT/HCPCS: 70553; 76705; A9575

== ENCOUNTER → 2023-03-22 | Outpatient (CLI) | payer MEDICARE, OTHER, SELFPAY ==
[2023-03-22 12:21] LABS: Hematocrit 36.2 % (40-54); Hemoglobin 11.5 g/dL (13.0-16.5); Mean Corp Hgb Conc 31.8 g/dL (32-36); Mean Corpuscular Hgb 31.4 pg (27.0-32.0); Mean Corpuscular Volume 98.9 fL (80-94); Mean Platelet Vol. 10.5 fl (6.2-12.0); Platelet Count 235 K/mm3 (150-450); RBC Distribution Width CV 14.3 % (11.6-14.6); RBC Distribution Width SD 52.1 fl (35.1-43.9); RET-HE 34.8 pg (30-35); Red Blood Count 3.66 M/mm3 (4.6-6.2); Reticulocyte Count 2.03 % (0.5-1.5)
[2023-03-22 12:36] LABS: Anion Gap 4 (5-15); BUN 28 mg/dL (7-18); BUN/Creat Ratio 27.2 RATIO (10-20); Calcium,Total 8.9 mg/dL (8.5-10.1); Chloride 111 mmol/L (98-107); Creatinine, Serum 1.03 mg/dL (0.70-1.30); EST Glomerular Filtration Rate 74 mL/min (>60); Est Glom Filt Rate - Afr Amer 90 mL/min (>60); Ferritin 179 ng/mL (26-388); Glucose 88 mg/dL (74-106); Iron 94 ug/dL (65-175); Iron Binding Capacity,Total 368 ug/dL (250-450); Magnesium 1.6 mg/dL (1.6-2.6); Potassium 3.9 mmol/L (3.5-5.1); Sodium Level 143 mmol/L (136-145)
== END | disposition home or self-care (01) ==
LOC: MFPLAB 10:06
PROVIDERS: PCP Family Medicine; Visit Provider Family Medicine
DX: D64.9 Anemia, unspecified (principal); F32.A Depression, unspecified; R79.0 Abnormal level of blood mineral
CPT/HCPCS: 36415; 80048; 82728; 83540; 83550; 83735; 85027; 85045

== ENCOUNTER → 2023-05-24 | Outpatient (CLI) | payer MEDICARE, OTHER, SELFPAY ==
[2023-05-24 13:09] LABS: AST(SGOT) 20 U/L (15-37); Alanine Aminotransfer ALT/SGPT 16 U/L (16-61); Alkaline Phosphatase 83 U/L (45-117); Bilirubin, Direct 0.17 mg/dL (0.00-0.30); Cholesterol 162 mg/dL (200); Globulin 3.5 g/dL (2.2-4.2); High Density Lipoprotein 65 mg/dL; Protein, Total 7.5 g/dL (6.4-8.2); Triglycerides 77 mg/dL; Very Low Density Lipoprotein 15 mg/dL (5-40)
== END | disposition home or self-care (01) ==
LOC: MFPLAB 09:42
PROVIDERS: PCP Family Medicine; Visit Provider Nurse Practitioner Family
DX: E78.00 Pure hypercholesterolemia, unspecified (principal)
CPT/HCPCS: 36415; 80061; 80076

== ENCOUNTER → 2023-06-05 | Outpatient (CLI) | payer MEDICARE, OTHER, SELFPAY ==
[2023-06-05 13:03] LABS: Anion Gap 8 (5-15); BUN 31 mg/dL (7-18); BUN/Creat Ratio 23.1 RATIO (10-20); Calcium,Total 9.4 mg/dL (8.5-10.1); Chloride 102 mmol/L (98-107); Creatinine, Serum 1.34 mg/dL (0.70-1.30); EST Glomerular Filtration Rate 55 mL/min (>60); Est Glom Filt Rate - Afr Amer 66 mL/min (>60); Glucose 145 mg/dL (74-106); Magnesium 1.9 mg/dL (1.6-2.6); Potassium 3.7 mmol/L (3.5-5.1); Sodium Level 140 mmol/L (136-145)
== END | disposition home or self-care (01) ==
LOC: MFPLAB 11:17
PROVIDERS: PCP Family Medicine; Visit Provider Nurse Practitioner Gerontology
DX: E83.42 Hypomagnesemia (principal)
CPT/HCPCS: 36415; 80048; 83735

== ENCOUNTER → 2023-06-28 | Outpatient (CLI) | payer MEDICARE, OTHER, SELFPAY ==
[2023-06-28 15:35] LABS: Anion Gap 4 (5-15); BUN 33 mg/dL (7-18); BUN/Creat Ratio 23.6 RATIO (10-20); Calcium,Total 10.1 mg/dL (8.5-10.1); Chloride 105 mmol/L (98-107); EST Glomerular Filtration Rate 52 mL/min (>60); Est Glom Filt Rate - Afr Amer 63 mL/min (>60); Glucose 144 mg/dL (74-106); Potassium 4.1 mmol/L (3.5-5.1); Sodium Level 139 mmol/L (136-145)
== END | disposition home or self-care (01) ==
PROVIDERS: PCP Family Medicine; Visit Provider Nurse Practitioner Gerontology
DX: I10 Essential (primary) hypertension (principal)
CPT/HCPCS: 36415; 80048

== ENCOUNTER → 2023-10-21 | Outpatient (CLI) | payer MEDICARE, OTHER, SELFPAY ==
[2023-10-21 13:41] LABS: Absolute Lymphocyte Count 2.04 X10^3/uL (0.83-4.51); Absolute Neutrophil Count 5.8 X10^3/uL (2.0-7.7); Basophil# 0.07 X10^3/uL; Basophil% 0.8 % (0-1); Eosinophils% 1.2 % (0-5); Hematocrit 42.4 % (40-54); Hemoglobin 13.6 g/dL (13.0-16.5); Lymphocyte # 2.04 X10^3/ul (0.83-4.51); Lymphocyte % 23.5 % (19-41); Mean Corp Hgb Conc 32.1 g/dL (32-36); Mean Corpuscular Hgb 28.5 pg (27.0-32.0); Mean Corpuscular Volume 88.7 fL (80-94); Monocyte# 0.62 X10^3/uL; Monocyte% 7.2 % (0-10); NRBC Flagged by Analyzer 0 % (0-5); Neutrophil % 66.8 % (47-70); Platelet Count 294 K/mm3 (150-450); RBC Distribution Width CV 12.3 % (11.6-14.6); RBC Distribution Width SD 40.3 fl (35.1-43.9); Red Blood Count 4.78 M/mm3 (4.6-6.2); White Blood Count 8.7 K/mm3 (4.4-11.0)
[2023-10-21 14:10] LABS: AST(SGOT) 15 U/L (15-37); Alanine Aminotransfer ALT/SGPT 16 U/L (16-61); Alkaline Phosphatase 81 U/L (45-117); Anion Gap 4 (5-15); BUN 32 mg/dL (7-18); BUN/Creat Ratio 21.6 RATIO (10-20); Calcium,Total 9.8 mg/dL (8.5-10.1); Chloride 105 mmol/L (98-107); Creatinine, Serum 1.48 mg/dL (0.70-1.30); EST Glomerular Filtration Rate 49 mL/min (>60); Est Glom Filt Rate - Afr Amer 59 mL/min (>60); Globulin 4.2 g/dL (2.2-4.2); Glucose 90 mg/dL (74-106); LDH 159 U/L (87-241); Potassium 4.1 mmol/L (3.5-5.1); Protein, Total 8.2 g/dL (6.4-8.2); Sodium Level 138 mmol/L (136-145)
[2023-10-21 14:18] LABS: T4 Free Direct 1.08 ng/dL (0.76-1.46); Thyroid Stim Hormone (TSH) 1.42 uIU/mL (0.358-3.74)
[2023-10-23 15:08] LABS: Albumin 4.1 g/dL (2.9-4.4); Alpha-1-Globulins 0.3 g/dL (0.0-0.4); Alpha-2-Globulins 0.8 g/dL (0.4-1.0); Free Lambda Light Chains 11.9 mg/L (5.7-26.3); Gamma Globulin 1.4 g/dL (0.4-1.8); Immunoglobulin A 69 mg/dL (61-437); Immunoglobulin G 1696 mg/dL (603-1613); Immunoglobulin M 47 mg/dL (15-143); PROEL- TOTAL PROTEIN 7.6 g/dL (6.0-8.5)
== END | disposition home or self-care (01) ==
LOC: LAB 13:09
PROVIDERS: PCP Family Medicine; Referring Provider Internal Medicine Medical Oncology; Visit Provider Internal Medicine Medical Oncology
DX: D68.51 Activated protein C resistance (principal); D47.2 Monoclonal gammopathy; R79.89 Other specified abnormal findings of blood chemistry
CPT/HCPCS: 36415; 80053; 82784; 83615; 83883; 84165; 84439; 84443; 85025; 86334

== ENCOUNTER → 2023-12-04 | Outpatient (CLI) | payer MEDICARE, OTHER, SELFPAY | END | disposition home or self-care (01) | LOC: LAB.FUTURE 09:43 | PROVIDERS: PCP Family Medicine | DX: Z13.29 Encounter for screening for other suspected endocrine disorder (principal); Z51.81 Encounter for therapeutic drug level monitoring; Z13.228 Encounter for screening for other metabolic disorders; Z13.0 Encounter for screening for diseases of the blood and blood-forming organs and certain disorders involving the immune mechanism | CPT/HCPCS: 36415; 80178 ==

== ENCOUNTER → 2023-12-21 | Outpatient (CLI) | payer MEDICARE, OTHER, SELFPAY ==
[2023-12-21 12:48] LABS: AST(SGOT) 28 U/L (15-37); Alanine Aminotransfer ALT/SGPT 16 U/L (16-61); Albumin, Serum 3.6 g/dL (3.2-5.0); Alkaline Phosphatase 83 U/L (45-117); Bilirubin, Direct 0.16 mg/dL (0.00-0.30); Cholesterol 152 mg/dL (200); Globulin 4.3 g/dL (2.2-4.2); High Density Lipoprotein 55 mg/dL; Protein, Total 7.9 g/dL (6.4-8.2); Triglycerides 96 mg/dL; Very Low Density Lipoprotein 19 mg/dL (5-40)
== END | disposition home or self-care (01) ==
LOC: LAB 11:33
PROVIDERS: PCP Family Medicine; Referring Provider Nurse Practitioner Family; Visit Provider Nurse Practitioner Family
DX: E78.00 Pure hypercholesterolemia, unspecified (principal)
CPT/HCPCS: 36415; 80061; 80076

== ENCOUNTER 2023-12-31 15:47 | Emergency (ER) | payer MEDICARE, OTHER, SELFPAY ==
[2023-12-31 15:48] VITALS: BP 151/92; PULSE 98; RESP 28; TEMP 36.4; O2SAT 98
[2023-12-31 15:58] VITALS: O2SAT 99
[2023-12-31 16:03] VITALS: BMI 22.6
--- NOTE | 2023-12-31 16:03 | EKG12_ITS ---
Test Reason : SOB Blood Pressure : / mmHG Vent. Rate : 089 BPM Atrial Rate : 089 BPM P-R Int : 154 ms QRS Dur : 134 ms QT Int : 402 ms P-R-T Axes : 000 -59 011 degrees QTc Int : 489 ms Normal sinus rhythm Right bundle branch block Left anterior fascicular block Bifascicular block Inferior infarct , age undetermined Abnormal ECG Confirmed by TIMI PEREYRA, BRIGIDO ([id number]), index editor YUSRA MATTSON ([id number]) on 01/02/2024 8:21:32 AM Referred By: Confirmed By:BRIGIDO CAPELLAN MD
--- NOTE | 2023-12-31 16:05 | ED.VIS.DYS ---
HPI History of Present Illness Chief Complaint: Shortness of Breath Detail of Chief Complaint: Shortness of breath Informant: patient and spouse/S.O. Narrative Narrative: Patient presents with shortness of breath that has had for about 2 days. He denies cough. He denies chest pain. Does describe discomfort across the upper abdomen. Pain made worse with eating. Has had no nausea or vomiting. Is not had a fever. He feels shaky. Patient has history of catatonic depression and up until 2 weeks ago was receiving electrical therapy for this. He is currently on lithium and clomipramine. On Ativan currently but only taking 1 mg at night had been on 3 times a day. Patient denies recent illness otherwise. 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 Obstructive sleep apnea DVT (deep venous thrombosis) GERD (gastroesophageal reflux disease) Hyperlipidemia Hypertension Home Medications ?Medication ?Instructions ?Recorded ?Last Taken ?Type aspirin 81 mg chewable tablet 81 mg PO QHS Heart health 09/14/13 09/12/20 History pantoprazole 40 mg tablet,delayed 40 mg PO QDAY gerd 01/27/18 09/12/20 History release metoprolol succinate 25 mg 12.5 mg (1/2 x 25 mg) PO DAILY #45 05/27/23 Unknown Rx tablet,extended release 24 hr tabs multivitamin 1 tab PO DAILY 05/27/23 Unknown History magnesium oxide 400 mg PO BID 11/07/23 Unknown History fenofibrate 160 mg tablet 160 mg PO DAILY #90 tabs 11/26/23 Unknown Rx rosuvastatin 20 mg tablet 20 mg PO QHS cholesterol #90 tabs 11/26/23 Unknown Rx amlodipine 5 mg tablet 5 mg PO DAILY 12/24/23 Unknown History clomipramine 75 mg capsule 75 mg PO DAILY 12/24/23 Unknown History lithium carbonate 150 mg capsule 150 mg PO ONCE 12/24/23 Unknown History lorazepam 1 mg tablet (Ativan) 1 mg PO DAILY PRN 12/24/23 Unknown History Allergy/AdvReac Type Severity Reaction Status Date / Time atorvastatin (From Lipitor) AdvReac Severe Intolerence, Verified 12/31/23 15:48 elevated LFT's Family History (Reviewed 12/24/23 @ 09:55 by Edelmira Green [employer], [employer]-C) Father CAD (coronary artery disease) Parkinson disease Mother Pancreatic cancer Sister Metastatic breast cancer Aunt Cancer maternal Grandmother Pancreatic cancer maternal Surgical History (Reviewed 12/24/23 @ 09:55 by Edelmira Green [employer], [employer]) H/O spinal fusion History of surgery on arm H/O right knee surgery Previous back surgery H/O umbilical hernia repair History of appendectomy History of coronary artery stent placement (~05/28/11) Social History (Reviewed 12/24/23 @ 09:55 by Edelmira Green [employer], INS[employer]-C) Smoking Status: Former smoker how long ago did patient quit smokin years ago alcohol intake: never caffeine: No ROS ROS ED Review of Systems ROS Unobtainable: other Constitutional Constitutional ED: Reports lethargy; Denies chills, fever(s), sweats or weight loss Eyes Eyes: Denies blurry vision, change in vision or diplopia ENT ENT ED: Denies rhinorrhea or sore throat Cardiovascular Cardiovascular: Denies chest pain, orthopnea or racing heartbeat Respiratory/Chest Respiratory/Chest: Reports dyspnea; Denies cough, dyspnea on exertion, orthopnea or sputum Gastrointestinal Gastrointestinal: Reports abdominal pain; Denies diarrhea, nausea or vomiting Genitourinary Genitourinary ED: Denies dysuria, hematuria or urinary frequency Musculoskeletal Musculoskeletal: Denies arthralgias, back pain, myalgias or neck pain Integumentary Denies abscess, Abrasions or rash Neurologic Neurologic: Denies headache(s) or weakness Psychiatric Psychiatric: Denies anxiety, depression or suicidal thoughts Endocrine Endocrinology: Denies polydipsia, polyphagia or polyuria Hematologic/Lymphatic Hematologic/Lymphatic: Denies easy bleeding, easy bruising or lymphadenopathy Allergic/Immunologic Allergic/Immunologic ED: Denies mouth swelling, tongue swelling or urticaria EXAM Physical Exam Const Vital Signs: 12/31/23 15:48 12/31/23 15:58 12/31/23 16:03 Temperature 97.6 F L Temperature Source Temporal Pulse Rate 98 Respiratory Rate 28 H Respiratory Effort Non-Labored Short of Breath Blood Pressure 151/92 H Blood Pressure Mean 111 Pulse Ox 98 Oxygen Delivery Method Room Air Room Air Room Air Positive well nourished and well developed General Appearance ED: well developed and NAD HEENT Reports TM's clear and moist mucous membranes normocephalic and atraumatic; Negative for trauma or tenderness Tympanic Membrane ED: Yes TM's clear Eyes PERRL and EOMs intact bilaterally General Eye ED: Negative for pale conjunctiva or scleral icterus Neck no lymphadenopathy, supple and no JVD General: Negative for tenderness Chest Wall inspection of chest normal and palpation of chest normal Chest: Negative for tenderness Resp normal respiratory effort and clear to auscultation bilaterally Effort and Inspection: Negative for respiratory distress or pain with movement Auscultation: Negative for rhonchi, wheezes or diminished lung sounds Cardio regular rate, regular rhythm, S1 normal heart sound, S2 normal heart sound and no murmurs Peripheral Pulses: pulses 2+ throughout GI normal to inspection, nondistended, normoactive bowel sounds, soft to palpation, non-tender, non-distended and no masses Back/Spine no CVA tenderness and no thoracic nor lumbar tenderness Extremity normal to inspection General Extremety ED: Negative for edema General Extremity: Negative for edema Neuro oriented x3, CN's II-XII intact bilaterally, no sensory deficits noted and gait normal Sensorium / Orientation: awake, alert, oriented to person, oriented to place and oriented to time Motor Exam: strength 5/5 throughout and strength abnormal Psych mental status grossly normal Skin no rashes or lesions noted and no wounds MDM MDM MDM Narrative Medical decision making narrative: Patient presents with dyspnea without any other significant complaints. History of depression and anxiety. Clinically seems little bit anxious and jittery. Vital signs stable other than he does have some tachypnea. In the differential would be acute coronary syndrome versus PE versus pneumonia or other infectious etiology or anxiety. IV line established. EKG obtained arrival shows sinus rhythm with ventricular rate of 89 bpm with right bundle branch block and left anterior fascicular block. CBC with initial normal white count of 8.2 with hemoglobin 15 and platelet count 299. Chemistries unremarkable. D-dimer was normal at 0.82. LFTs unremarkable. BUN 28 creatinine 1.57. Troponin was normal at 4. Lipase normal at 52. [place] level was less than 0.2. D-dimer was elevated 0.[address] of the chest was obtained given his history of PEs and factor V Leiden. This CT showed no evidence of PE or any other acute process. Did show evidence of COPD. While in department he did receive Ativan 1 mg IV and his states that he is cured and his symptoms have resolved. This point suspect likely anxiety attack. Recommended that he follow-up with psychiatrist for further medication adjustments. Lab Data Attestation: I reviewed the patient's lab results. Labs: Laboratory Results - last 24 hr 12/31/23 16:20 WBC 8.2 RBC 5.17 Hgb 15.1 Hct 45.1 MCV 87.2 MCH 29.2 MCHC 33.5 RDW Std Deviation 42.4 RDW Coeff of [place] 13.2 Plt Count 299 MPV 9.3 Immature Gran % (Auto) 0.200 Neut % (Auto) 61.9 Lymph % (Auto) 28.4 [place] % (Auto) 7.2 Eos % (Auto) 1.7 Baso % (Auto) 0.6 Absolute Neuts (auto) 5.1 Absolute Lymphs (auto) 2.32 Nucleated RBC % 0 D-Dimer Quant (PE/DVT) 0.82 H* Sodium 137 Potassium 4.2 Chloride 103 Carbon Dioxide 26.0 Anion Gap 8 BUN 28 H Creatinine 1.57 H Estim Creat Clear Calc 39.33 Est GFR (MDRD) Af Amer 55 L Est GFR (MDRD) Non-Af 46 L BUN/Creatinine Ratio 17.8 Glucose 90 Calcium 10.3 H Total Bilirubin 0.60 Direct Bilirubin 0.18 AST 17 ALT 17 Alkaline Phosphatase 92 Troponin I High Sens 4 Total Protein 8.5 H Albumin 4.1 Globulin 4.4 H Lipase 52 [place] < 0.20 L Radiography Diagnostic Testing: Clinical Impression(s) from Imaging Studies Chest X-Ray 12/31/23 16:30 IMPRESSION: No acute chest disease. Electronically Signed: Víctor Olmedo MD at 16:49 EDT , Chest CTA 12/31/23 16:59 IMPRESSION: Normal CTA chest examination, without a demonstrated pulmonary embolism or arterial dissection. There are findings consistent with COPD. There is no evidence of acute chest disease. Electronically Signed: Víctor Olmedo MD at 17:41 EDT , 1 view chest x-ray obtained interpreted by myself as no evidence of infiltrate or pneumothorax or acute disease process. Radiology in agreement. EKG Initial EKG: Attestation: I personally reviewed and interpreted this EKG as follows: Comments: Sinus rhythm with rate of 89 bpm with rate bundle branch block and left anterior fascicular block Discharge Plan Triage Chief Complaint: Shortness of Breath ED Provider: Chun Moody Dx/Rx/DC Orders Clinical Impression: Acute dyspnea, Anxiety reaction Instructions: ED Anxiety Reaction, ED Dyspnea Prescriptions: No Action pantoprazole 40 mg tablet,delayed release (DR/EC) 40 mg PO QDAY multivitamin Tablet 1 tab PO DAILY metoprolol succinate 25 mg tablet extended release 24 hr 12.5 mg PO DAILY Qty: 45 3RF magnesium oxide 500 mg magnesium tablet 400 mg PO BID amlodipine 5 mg tablet 5 mg PO DAILY lithium carbonate 150 mg capsule 150 mg PO ONCE clomipramine 75 mg capsule 75 mg PO DAILY lorazepam [Ativan] 1 mg tablet 1 mg PO DAILY PRN aspirin 81 MG tablet,chewable 81 mg PO QHS Patient Comments: [facility] Health rosuvastatin 20 mg tablet 20 mg PO QHS Qty: 90 4RF fenofibrate 160 mg tablet 160 mg PO DAILY Qty: 90 4RF Primary Care Provider: Bhanu Milan Referrals: Bhanu Milan MD [Primary Care Provider] - 3-5 Days Activity Restrictions/Additional Instructions: Talk to your psychiatrist regarding your Ativan and anxiety medication to have further recommendations and adjustments in your medications. Print Language: Divehi Disposition Disposition: Home, Self Care
[2023-12-31] MEDS: LORazepam 2 MG/ML Syringe 1 MG IV (16:21)
--- NOTE | 2023-12-31 16:30 | RAD_ITS ---
STUDY: X-RAY CHEST REASON FOR EXAM: Male, 78 years old. dyspnea TECHNIQUE: Single AP portable view of the chest. COMPARISON: None. FINDINGS: The lungs are clear and expanded. 1.2 cm calcified granuloma in the lower right lung. There is no demonstrated pleural abnormality. Normal size heart. Normal mediastinum and maria l. There is prominence of the pulmonary hilar arteries without peripheral pulmonary vascular congestion, suggesting pulmonary hypertension. There is atherosclerotic tortuosity of the aortic arch and descending thoracic aorta. There are diffuse degenerative changes of the visualized thoracic spine. There is degenerative osteoarthritis of the bilateral shoulders. There is no demonstrated abnormality of the visualized soft tissue structures of the upper abdomen. RAD/Chest 1 View (Portable) IMPRESSION: No acute chest disease. Electronically Signed: Víctor Olmedo MD at 16:49 EDT ,
[2023-12-31 16:34] LABS: Absolute Lymphocyte Count 2.32 X10^3/uL (0.83-4.51); Absolute Neutrophil Count 5.1 X10^3/uL (2.0-7.7); Basophil# 0.05 X10^3/uL; Basophil% 0.6 % (0-1); Eosinophil# 0.14 X10^3/uL; Eosinophils% 1.7 % (0-5); Hematocrit 45.1 % (40-54); Hemoglobin 15.1 g/dL (13.0-16.5); Lymphocyte # 2.32 X10^3/ul (0.83-4.51); Lymphocyte % 28.4 % (19-41); Mean Corp Hgb Conc 33.5 g/dL (32-36); Mean Corpuscular Hgb 29.2 pg (27.0-32.0); Mean Corpuscular Volume 87.2 fL (80-94); Mean Platelet Vol. 9.3 fl (6.2-12.0); Monocyte# 0.59 X10^3/uL; Monocyte% 7.2 % (0-10); NRBC Flagged by Analyzer 0 % (0-5); Neutrophil # 5.05 X10^3/uL (2.7-7.7); Neutrophil % 61.9 % (47-70); Platelet Count 299 K/mm3 (150-450); RBC Distribution Width CV 13.2 % (11.6-14.6); RBC Distribution Width SD 42.4 fl (35.1-43.9); Red Blood Count 5.17 M/mm3 (4.6-6.2); White Blood Count 8.2 K/mm3 (4.4-11.0)
[2023-12-31 16:53] LABS: AST(SGOT) 17 U/L (15-37); Alanine Aminotransfer ALT/SGPT 17 U/L (16-61); Albumin, Serum 4.1 g/dL (3.2-5.0); Alkaline Phosphatase 92 U/L (45-117); Anion Gap 8 (5-15); BUN 28 mg/dL (7-18); BUN/Creat Ratio 17.8 RATIO (10-20); Bilirubin, Direct 0.18 mg/dL (0.00-0.30); Calcium,Total 10.3 mg/dL (8.5-10.1); Chloride 103 mmol/L (98-107); Creatinine, Serum 1.57 mg/dL (0.70-1.30); EST Glomerular Filtration Rate 46 mL/min (>60); Est Glom Filt Rate - Afr Amer 55 mL/min (>60); Estimated Creatinine Clearance 39.33 ml/min; Globulin 4.4 g/dL (2.2-4.2); Glucose 90 mg/dL (74-106); Lipase 52 U/L (13-75); Potassium 4.2 mmol/L (3.5-5.1); Protein, Total 8.5 g/dL (6.4-8.2); Sodium Level 137 mmol/L (136-145); Troponin-I HS 4 pg/mL (3.0-78.0)
[2023-12-31 16:58] LABS: D-Dimer Quantitative (DVT/PE) 0.82 FEU/ug/m (0.27-0.49)
--- NOTE | 2023-12-31 16:59 | CT_ITS ---
STUDY: CTA CHEST REASON FOR EXAM: Male, 78 years old. elevated d-dimer RADIATION DOSAGE (If Supplied By Facility): CTDIvol = ( 10.64 ) mGy, DLP = ( 379.05 ) mGycm TECHNIQUE: The examination was performed with the intravenous administration of IV 100mL Isovue-370. Post-processing of the angiographic images was performed, with multiplanar reformation and 3D reconstruction. Individualized dose optimization techniques were used for this CT. COMPARISON: None. FINDINGS: Exam limited by motion. Normal enhancement of the main pulmonary artery and right and left pulmonary arteries. Normal enhancement of the bilateral peripheral pulmonary arteries. There is no demonstrated pulmonary embolism. Normal thoracic aorta and visualized great vessels. There is no demonstrated aortic dissection. Normal heart and pericardium. Normal mediastinum. Normal hilar regions. The lungs are hyperexpanded. There are coarsened interstitial markings suggestive of mild diffuse chronic fibrosis. No gross focal infiltrates. 1.5 cm peripheral calcification in the right lower lobe consistent with granuloma. No gross effusions. There are degenerative changes of thoracic spine. Normal visualized upper abdomen. CT/CTA Chest W/WO Contrast IMPRESSION: Normal CTA chest examination, without a demonstrated pulmonary embolism or arterial dissection. There are findings consistent with COPD. There is no evidence of acute chest disease. Electronically Signed: Víctor Olmedo MD at 17:41 EDT ,
[2023-12-31 17:35] LABS: Lithium < 0.20 mmol/L (0.60-1.20)
[2023-12-31 17:47] VITALS: BP 143/82; PULSE 88; RESP 18; O2SAT 98
[2023-12-31 18:00] VITALS: BP 146/84; PULSE 94; RESP 20; TEMP 36.9; O2SAT 99
[2023-12-31 21:58] LABS: BNP,B-Type NATRIURETIC PEPTIDE 18.1 pg/mL (0-100)
== END 2023-12-31 18:14 | disposition home or self-care (01) ==
PROVIDERS: Emergency Provider Emergency Medicine; PCP Family Medicine; Visit Provider Emergency Medicine
DX: R06.02 Shortness of breath (principal); F41.1 Generalized anxiety disorder; Z87.891 Personal history of nicotine dependence; I45.2 Bifascicular block; I10 Essential (primary) hypertension; J45.909 Unspecified asthma, uncomplicated; K21.9 Gastro-esophageal reflux disease without esophagitis; E78.5 Hyperlipidemia, unspecified; I25.10 Atherosclerotic heart disease of native coronary artery without angina pectoris; R10.9 Unspecified abdominal pain
CPT/HCPCS: 71045; 71275; 80048; 80076; 80178; 83690; 83880; 84484; 85025; 85379; 87631; 93005; 96374; 99284; Q9967

== ENCOUNTER → 2024-01-21 | Outpatient (CLI) | payer MEDICARE, OTHER, SELFPAY ==
[2024-01-21 13:02] LABS: Anion Gap 7 (5-15); BUN 24 mg/dL (7-18); BUN/Creat Ratio 17.5 RATIO (10-20); Chloride 103 mmol/L (98-107); Creatinine, Serum 1.37 mg/dL (0.70-1.30); EST Glomerular Filtration Rate 53 mL/min (>60); Est Glom Filt Rate - Afr Amer 65 mL/min (>60); Glucose 96 mg/dL (74-106); Potassium 4.1 mmol/L (3.5-5.1); Sodium Level 136 mmol/L (136-145)
== END | disposition home or self-care (01) ==
LOC: MFPLAB 10:52
PROVIDERS: PCP Family Medicine; Visit Provider Family Medicine
DX: I10 Essential (primary) hypertension (principal); F32.A Depression, unspecified
CPT/HCPCS: 36415; 80048; 80178; 83735

== ENCOUNTER → 2024-04-11 | Outpatient (CLI) | payer MEDICARE, OTHER, SELFPAY ==
[2024-04-11 10:40] LABS: Anion Gap 3 (5-15); BUN 21 mg/dL (7-18); BUN/Creat Ratio 14.2 RATIO (10-20); Calcium,Total 10.3 mg/dL (8.5-10.1); Chloride 104 mmol/L (98-107); Creatinine, Serum 1.48 mg/dL (0.70-1.30); EST Glomerular Filtration Rate 49 mL/min (>60); Est Glom Filt Rate - Afr Amer 59 mL/min (>60); Glucose 107 mg/dL (74-106); Sodium Level 138 mmol/L (136-145)
== END | disposition home or self-care (01) ==
LOC: LAB 09:41
PROVIDERS: PCP Family Medicine; Referring Provider Psychiatry & Neurology Psychiatry; Visit Provider Psychiatry & Neurology Psychiatry
DX: Z13.29 Encounter for screening for other suspected endocrine disorder (principal); Z13.220 Encounter for screening for lipoid disorders; Z13.0 Encounter for screening for diseases of the blood and blood-forming organs and certain disorders involving the immune mechanism; Z51.81 Encounter for therapeutic drug level monitoring
CPT/HCPCS: 36415; 80048; 80178; 84443

== ENCOUNTER 2024-06-30 12:00 | Outpatient (RCR) | payer MEDICARE, OTHER, SELFPAY ==
--- NOTE | 2024-05-05 14:01 | HP.PTEVAL ---
Patient's Visit Information Visit Information Visit Information: RADHA GIANG is a 79 year old M referred to Physical Therapy by Dr. Roger Hilton MD with a diagnosis of PF w/o dyskinesia and unsteadiness. Date of Evaluation: 05/05/24 Physical Therapist: MATTHEW Vieira Visit Plan Frequency: 2x /Week Duration: 2 Months Plan: 2X/ week for 8 weeks for postural exercises, opp arm and leg dual tasking, stairs, balance, gait training, bed mobility (kristofer rolling to sidelying and sitting up) with a gym routine at the end for indep transfer to gym and HEP Subjective Subjective: Pt has had PD dx for 3 weeks but sx for about a year. He struggles with his stability in his legs, twitching in his hands. He feels that the stability in his legs are getting better.. He was hospitalized and uneven ground and steps are an issue. Catatonia was dx in hospital and he has been home since this past spring. PD has shuffled gait, he has fallen in the past. He still goes outside in the [place] with a vehicle and sometimes walking. He has to do a lot of scootching to get in and out of bed. Stairs are an issue and says he can do it as long as he has a railing. He has no freezing episodes. They started him on PD meds about 3 weeks ago and the tremors are less obvious. He is sleeping but up late at night and wanting to sleep all day Objective Objective: Sit to stand: Able to get up without using his arms and on first attempt but does take effort. Gait: walks with heels almost touching and short shuffled feet with flexed trunk Sit to supine: has a hard time going in both directions and does not line up straight and has to readjust his positioning which is hard. He is not able to roll to his side and then sit up and kind of 1/2 rolls to his side and sits ups FGA: 9 LE MMT R hip flex 4/5 B R knee ext B 4/5 R knee flex 4-/5 B Tight B gastroc B Posture: sits with fw/rounded shoulders Tight HS B and gastroc Seated hip flex and opp arm flex X 10 on each side with no problem Standing hip flex and opp arm flex X 5 on each side and then reverts to same side. Balance/Special Test Scores Functional Gait Assessment Score: 9 % Disability: 70.0000 Lower Extremity Functional Score: 53 Goals Goal 1:: I HEP Goal Time Frame: 8-12 Weeks Goal 2:: Be able to complete X 20 standing opp arm and leg FW and BW without messing up sequence Goal Time Frame: 6-8 Weeks Goal 3:: Be able to walk with bigger strides with more heel to toe gait pattern Goal Time Frame: 6-8 Weeks Goal 4:: Increase balance (score was 9 on FGA at eval) Goal Time Frame: 8-12 Weeks Rehabilitation Potential Rehabilitation Potential: Good Anticipated Interventions Patient/Client Instruction: Educate patient on: Condition and Plan of Care For the Purpose of:: To increase ROM, To improve nutrient delivery to tissue, To improve muscle performance and motor function, To improve ability to perform ADL's, To increase tolerance to activity/condition/position, To improve performance and independence with ADL's, To decrease level of supervision to perform tasks, To improve ability of physical actions for home/community/work/leisure, To improve gait and locomotor functions, To improve health of tissue, To decrease soft tissue restriction, To increase flexibility/ROM, To improve endurance, To improve balance and To improve safety with gait Therapeutic Exercise to Include: Strength training, Endurance training, Balance training, Body mechanics, Postural training, Flexibilty training, Gait and locomotor training, Neuromotor development, Active ROM and Dynamic Lumbar Stabilization For the Purpose of:: To improve nutrient delivery to tissue, To increase oxygenation perfusion, To improve muscle performance and motor function, To improve ability to perform ADL's, To increase tolerance to activity/condition/position, To improve performance and independence with ADL's, To decrease level of supervision to perform tasks, To improve ability of physical actions for home/community/work/leisure, To improve gait and locomotor functions, To improve health of tissue, To decrease soft tissue restriction, To increase flexibility/ROM, To improve endurance, To improve balance, To improve safety with gait and To assume or resume ADL's Functional Training to Include: Gait training For the Purpose of:: To improve gait and locomotor functions and To improve safety with gait Text: Thank you for the opportunity to evaluate your patient. For Medicare and Medicare HMO plans, please review the plan of care and approve it. It will need to be FAXED BACK to us at [phone] for Medicare purposes. For Medicare only, by signing this I certify the plan of care. Please let me know if there are questions or concerns regarding this plan of care. Physician Signature: Date:
--- NOTE | 2024-06-30 12:29 | HP.PTDCSUM ---
Discharge Summary D/C summary: It has been my pleasure to treat RADHA GIANG referred by Dr. Roger Hilton MD, with the diagnosis of PF w/o dyskinesia and unsteadiness for a total of 15 visit(s). Discharge Date: 06/30/24 Please see the following information for a summary of their discharge status. Subjective Subjective: He feels that things are going really well between the machines and the HEP. He feels more flexible and easier to step. He feels that his balance has been pretty good also. He can walk through the house with authority Pain R SH: Pain Intensity (Out of 10): 2 Overall Improvement % Improvement: 50 Objective Objective/Function: Gait: walks with bigger step length than the inital eval but still smaller than normal FGA 16 Standing opp arm and leg Stairs: up and down recip with 2 hand rails Goals Goal 1:: I HEP Goal Progress: Goal Met Goal 2:: Be able to complete X 20 standing opp arm and leg FW and BW without messing up sequence Goal Progress: Goal Met Goal 3:: Be able to walk with bigger strides with more heel to toe gait pattern Goal Progress: Progressing Goal 4:: Increase balance (score was 9 on FGA at eval) Goal Progress: Goal Met Goal 5:: Indep gym routine with hand outs and set up on own Goal Progress: Goal Met Goal 6:: Be able to go up and down the stairs with 1 hand rail recip without hitting heel on the steps Goal Progress: Progressing Plan Plan: DC PT to indep gym routine D/C Information Discharge Comments: DC PT to indep HEP and gym routine d/c sentence: If there are questions or concerns regarding this patient's physical therapy, please feel free to call me at [phone]. Thank you for the referral of this patient. Sincerely, Maggie Dickson, MPT Balance/Gait/Functional tests Balance/Special Test Scores Functional Gait Assessment Score: 16 % Disability: 46.6700 Lower Extremity Functional Score: 57 Improvement % Improvement: 50
== END 2024-06-30 19:00 | disposition home or self-care (01) ==
LOC: PT 12:00
PROVIDERS: PCP Family Medicine; Referring Provider Psychiatry & Neurology Neurology; Visit Provider Psychiatry & Neurology Neurology
DX: R26.81 Unsteadiness on feet (principal); G20.A1 Parkinson's disease without dyskinesia, without mention of fluctuations
CPT/HCPCS: 97110; 97161; 97530

== ENCOUNTER → 2024-08-06 | Outpatient (CLI) | payer MEDICARE, OTHER, SELFPAY ==
[2024-08-06 11:17] LABS: Ionized Calcium Order ORDER TUBE
[2024-08-06 12:17] LABS: Ionized Calcium 1.32 mmol/L (1.09-1.30)
[2024-08-06 12:24] LABS: Vitamin D,25 Hydroxy 31.3 ng/mL
[2024-08-06 12:40] LABS: Anion Gap 7 (5-15); BUN 28 mg/dL (7-18); BUN/Creat Ratio 18.1 RATIO (10-20); Calcium,Total 10.3 mg/dL (8.5-10.1); Chloride 103 mmol/L (98-107); Cholesterol 191 mg/dL (200); Creatinine, Serum 1.55 mg/dL (0.70-1.30); EST Glomerular Filtration Rate 46 mL/min (>60); Est Glom Filt Rate - Afr Amer 56 mL/min (>60); Glucose 113 mg/dL (74-106); High Density Lipoprotein 63 mg/dL; Magnesium 2.1 mg/dL (1.6-2.6); Phosphorus 3.1 mg/dL (2.5-4.9); Potassium 4.3 mmol/L (3.5-5.1); Sodium Level 137 mmol/L (136-145); Triglycerides 97 mg/dL; Very Low Density Lipoprotein 19 mg/dL (5-40)
== END | disposition home or self-care (01) ==
LOC: MFPLAB 10:12
PROVIDERS: PCP Family Medicine; Referring Provider Family Medicine; Visit Provider Family Medicine
DX: E83.52 Hypercalcemia (principal); Z13.220 Encounter for screening for lipoid disorders
CPT/HCPCS: 36415; 80048; 80061; 82306; 82330; 83735; 83970; 84100

== ENCOUNTER → 2024-11-04 | Outpatient (CLI) | payer MEDICARE, OTHER, SELFPAY ==
[2024-11-04 11:33] LABS: Ionized Calcium Order ORDER TUBE
[2024-11-04 13:16] LABS: Microalbumin,Random Urine < 12.0 mg/L (NO RANGE EST.)
[2024-11-04 15:54] LABS: PTHIN 34 pg/mL (11-61)
[2024-11-04 16:11] LABS: AST(SGOT) 26 U/L (<=37); Alanine Aminotransfer ALT/SGPT 16 U/L (<=46); Albumin, Serum 4.5 g/dL (3.4-4.8); Alkaline Phosphatase 82 U/L (40-129); Anion Gap 11 (5-15); BUN 23 mg/dL (4-19); BUN/Creat Ratio 16.9 RATIO (10-20); Bilirubin, Direct 0.23 mg/dL (0.00-0.30); Calcium,Total 10.3 mg/dL (7.6-11.0); Carbon Dioxide 26.8 mmol/L (21.0-32.0); Chloride 100 mmol/L (98-108); Cholesterol 185 mg/dL (<=200); Creatinine, Serum 1.37 mg/dL (0.70-1.20); EST Glomerular Filtration Rate 52 (>60); Globulin 3.5 g/dL (2.2-4.2); Glucose 98 mg/dL (70-99); High Density Lipoprotein 62 mg/dL; Low Density Lipoprotein Calc. 105 mg/dL; Magnesium 2.2 mg/dL (1.5-2.2); Phosphorus 2.4 mg/dL (2.7-4.5); Potassium 4.6 mmol/L (3.3-5.1); Protein, Total 7.9 g/dL (5.9-8.4); Sodium Level 138 mmol/L (133-145); Total Bilirubin 0.45 mg/dL (0.00-1.30); Triglycerides 89 mg/dL; Very Low Density Lipoprotein 18 mg/dL (5-40)
[2024-11-04 16:21] LABS: Vitamin D,25 Hydroxy 31.4 ng/mL (30-100)
[2024-11-04 18:19] LABS: Lithium 0.55 mmol/L (0.60-1.20)
== END | disposition home or self-care (01) ==
LOC: MFPLAB 10:19
PROVIDERS: PCP Family Medicine; Referring Provider Family Medicine; Visit Provider Family Medicine
DX: Z00.00 Encounter for general adult medical examination without abnormal findings (principal); E83.52 Hypercalcemia; Z13.220 Encounter for screening for lipoid disorders; F32.A Depression, unspecified
CPT/HCPCS: 36415; 80048; 80061; 80076; 80178; 82043; 82306; 82330; 83735; 83970; 84100

== ENCOUNTER → 2024-12-21 | Outpatient (CLI) | payer MEDICARE, OTHER, SELFPAY ==
[2024-12-21 18:38] LABS: BUN 23 mg/dL (4-19); Creatinine, Serum 1.52 mg/dL (0.70-1.20); Glucose 82 mg/dL (70-99)
[2024-12-21 18:39] LABS: Anion Gap 12 (5-15); Carbon Dioxide 24.8 mmol/L (21.0-32.0); Chloride 103 mmol/L (98-108); EST Glomerular Filtration Rate 46 (>60); Lithium 0.44 mmol/L (0.60-1.20); Potassium 4.6 mmol/L (3.3-5.1); Sodium Level 140 mmol/L (133-145)
== END | disposition home or self-care (01) ==
LOC: MTLAB 15:05
PROVIDERS: PCP Family Medicine; Referring Provider Psychiatry & Neurology Psychiatry; Visit Provider Psychiatry & Neurology Psychiatry
DX: Z13.29 Encounter for screening for other suspected endocrine disorder (principal); Z13.228 Encounter for screening for other metabolic disorders; Z13.0 Encounter for screening for diseases of the blood and blood-forming organs and certain disorders involving the immune mechanism; Z79.899 Other long term (current) drug therapy
CPT/HCPCS: 36415; 80048; 80178

== ENCOUNTER → 2025-02-01 | Outpatient (CLI) | payer MEDICARE, OTHER, SELFPAY ==
[2025-02-01 16:00] LABS: Anion Gap 13 (5-15); BUN 26 mg/dL (4-19); BUN/Creat Ratio 18.2 RATIO (10-20); Calcium,Total 10.0 mg/dL (7.6-11.0); Carbon Dioxide 22.5 mmol/L (21.0-32.0); Chloride 101 mmol/L (98-108); Glucose 190 mg/dL (70-99); Potassium 4.1 mmol/L (3.3-5.1)
== END | disposition home or self-care (01) ==
LOC: MFPLAB 13:47
PROVIDERS: PCP Family Medicine; Visit Provider Psychiatry & Neurology Psychiatry
DX: Z13.29 Encounter for screening for other suspected endocrine disorder (principal); Z13.228 Encounter for screening for other metabolic disorders; Z13.0 Encounter for screening for diseases of the blood and blood-forming organs and certain disorders involving the immune mechanism
CPT/HCPCS: 36415; 80048

== ENCOUNTER → 2025-04-01 | Outpatient (CLI) | payer MEDICARE, OTHER, SELFPAY ==
[2025-04-01 18:07] LABS: Anion Gap 14 (5-15); BUN 29 mg/dL (4-19); BUN/Creat Ratio 20.2 RATIO (10-20); Calcium,Total 10.0 mg/dL (7.6-11.0); Carbon Dioxide 22.4 mmol/L (21.0-32.0); Chloride 101 mmol/L (98-108); Glucose 96 mg/dL (70-99); Potassium 4.3 mmol/L (3.3-5.1)
== END | disposition home or self-care (01) ==
LOC: MFPLAB 12:14
PROVIDERS: PCP Family Medicine; Visit Provider Psychiatry & Neurology Psychiatry
DX: Z13.29 Encounter for screening for other suspected endocrine disorder (principal); Z13.220 Encounter for screening for lipoid disorders; Z13.0 Encounter for screening for diseases of the blood and blood-forming organs and certain disorders involving the immune mechanism
CPT/HCPCS: 36415; 80048

== ENCOUNTER → 2025-05-26 | Outpatient (CLI) | payer MEDICARE, OTHER, SELFPAY ==
[2025-05-26 16:37] LABS: Lithium 0.91 mmol/L (0.60-1.20)
[2025-05-26 16:56] LABS: Anion Gap 11 (5-15); BUN 26 mg/dL (4-19); BUN/Creat Ratio 17.9 RATIO (10-20); Calcium,Total 10.6 mg/dL (7.6-11.0); Carbon Dioxide 24.9 mmol/L (21.0-32.0); Chloride 102 mmol/L (98-108); Glucose 137 mg/dL (70-99); Potassium 4.1 mmol/L (3.3-5.1)
== END | disposition home or self-care (01) ==
LOC: MTLAB 13:04
PROVIDERS: PCP Family Medicine; Referring Provider Psychiatry & Neurology Psychiatry; Visit Provider Psychiatry & Neurology Psychiatry
DX: Z13.29 Encounter for screening for other suspected endocrine disorder (principal); Z13.228 Encounter for screening for other metabolic disorders; Z13.0 Encounter for screening for diseases of the blood and blood-forming organs and certain disorders involving the immune mechanism; Z79.899 Other long term (current) drug therapy
CPT/HCPCS: 36415; 80048; 80178; 84443